=== PATIENT | female | born 1965 | race Hispanic/Latino ===

== ENCOUNTER 2017-10-01 14:03 | Inpatient (IN) | payer MEDICARE ==
[2017-10-01 16:28] LABS: Basophils % (Auto) 0.5 % (0.0-1.8); Eosinophils % (Auto) 3.6 % (0.0-4.3); Hematocrit 32.3 % (30.3-42.9); Hemoglobin 10.1 gm/dl (10.1-14.3); Mean Corpuscular HGB Conc 31 % (30-34); Mean Corpuscular Hemoglobin 30 pg (28-32); Mean Corpuscular Volume 95 fl (79-97); Platelet Count 199 K/mm3 (140-440); Red Blood Count 3.39 M/mm3 (3.65-5.03); Red Cell Distribution Width 15.5 % (13.2-15.2); White Blood Count 8.2 K/mm3 (4.5-11.0)
[2017-10-01 16:34] LABS: Calcium 8.3 mg/dL (8.4-10.2); Chloride 98.3 mmol/L (98-107)
[2017-10-01 16:55] LABS: Potassium 4.5 mmol/L (3.6-5.0)
--- NOTE | 2017-10-01 18:12 | Emergency Department Report ---
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 Patient states she developed right sided lateral chest wall pain described like someone is punching her since 3 AM. Pain is intermittent and worse with coughing and palpation. No specific alleviating factors reported. Pain Currently rated 3/10 in intensity. Patient received 1.5-2 hours of her scheduled 5 hour dialysis. Dialysis was interrupted due to drop in her blood pressure. Patient states she had a recent chest x-ray at the [facility] which showed bilateral pneumonia and she has been on antibiotics 1 week. Per MAR patient has been on Levaquin 750mg 7 days since September 27 and repeat chest x-ray was done today mine captain however, results not included with transfer paperwork. Patient continues to have cough productive of thick white greenish sputum and she reports a fever at the [facility]. Denies shortness of breath, nausea, vomiting, or diaphoresis. Patient also feels like her right leg is most swollen than usual but not painful. She has chronic left-sided paralysis secondary to previous CVA with chronic edema to the left arm and left leg. Patient did receive 2 nitroglycerin and 324 aspirin provided by the dialysis center prior to arrival. Dialysis center [facility], she does not know the name of the television operator Severity scale (0 -10): 1 - Related Data Allergies Allergy/AdvReac Type Severity Reaction Status Date / Time amoxicillin Allergy Unknown Verified 10/01/17 14:51 codeine Allergy Unknown Verified 10/01/17 14:51 potassium chloride Allergy Unknown Verified 10/01/17 14:51 prochlorperazine Allergy Unknown Verified 10/01/17 14:51 [From Compazine] Heart Score - HEART Score History: Slightly suspicious EKG: Normal Age: 45-65 Risk factors: > 3 risk factors or hx of atherosclerotic disease Troponin: 1-3x normal limit HEART Score: 4 ED Review of Systems ROS: Stated complaint: CHEST PAIN Other details as noted in HPI Comment: All other systems reviewed and negative Other: Constitutional: As per HPI Eyes: No eye pain visual changes or discharge ENT: No ear pain or throat pain Neck: Denies pain Respiratory: As per HPI Cardiovascular: As per HPI GI: Denies abdominal pain, nausea, vomiting, diarrhea : Patient states she still has urine output Musculoskeletal: As per HPI Skin: Denies rash, lesions, erythema Neurologic: Denies headache, numbness, weakness Psychiatric: Denies suicidal ideation, hallucinations ED Past Medical Hx - Past Medical History Previous Medical History?: Yes Hx Hypertension: Yes Hx CVA: Yes (residual left-sided weakness) Hx Heart Attack/AMI: Yes Hx Congestive Heart Failure: Yes Hx Diabetes: Yes Hx Renal Disease: Yes Hx COPD: Yes (on 3 L o2) Additional medical history: morbid obesity. sleep apnea - Surgical History Past Surgical History?: Yes - Social History Smoking Status: Former Smoker Substance Use Type: None ED Physical Exam - General Limitations: Physical Limitation - Other Other exam information: General: No limitations, patient is alert in no acute distress Head exam: Atraumatic, normocephalic Eyes exam: Normal appearance ENT: Moist mucous membrane, normal oropharynx Neck exam: Normal inspection, full range of motion, no meningismus nontender Respiratory exam: No tachypnea or accessory muscle use, diminished by base of the breath sounds Cardiovascular: Normal rate and rhythm. Reproducible right anterior lateral lower chest wall tenderness to palpation Abdomen: Soft, nondistended, and nontender, with normal bowel sounds, no rebound, or guarding Extremity: Full range of motion normal inspection no deformity Back: Normal Inspection, full range of motion, no tenderness Neurologic: Alert, oriented x3, cranial nerves intact, left arm and leg paralysis secondary to previous CVA with lymphedema. Mild right lower extremity edema, no calf tenderness process 5 upper right and lower right extremity strength Psychiatric: normal affect, normal mood Skin: Warm, dry, intact ED Course Vital Signs 10/01/17 10/01/17 10/01/17 15:26 15:28 15:30 Pulse Rate 77 78 78 Respiratory 10 L 20 14 Rate Blood Pressure Blood Pressure 93/60 [Right] O2 Sat by Pulse 94 95 96 Oximetry 10/01/17 10/01/17 10/01/17 15:46 16:00 16:27 Pulse Rate 78 Respiratory 11 L Rate Blood Pressure Blood Pressure [Right] O2 Sat by Pulse 96 99 96 Oximetry 10/01/17 10/01/17 10/01/17 16:30 16:45 17:01 Pulse Rate 76 72 Respiratory 13 12 Rate Blood Pressure 101/78 94/62 93/57 Blood Pressure [Right] O2 Sat by Pulse 98 97 98 Oximetry 10/01/17 10/01/17 17:15 17:30 Pulse Rate 76 74 Respiratory 13 12 Rate Blood Pressure 93/57 101/64 Blood Pressure [Right] O2 Sat by Pulse 93 Oximetry - Reevaluation(s) Reevaluation #1: 10/01/17 19:53 Was awaiting V/Q results however, I was informed at this time the patient's weight exceeded the limit for VQ scan. Patient making her a different Lasix 80 mg IV ordered - Consultations Consultation #1: 10/01/17 20:03 DR Burk television operator prior authorization nurse consulted to manage Dialysis NOMAN score - Noman Score Age > 65: (0) No Aspirin use within the Past 7 Days: (1) Yes 3 or more CAD Risk Factors: (1) Yes 2 or more Angina events in past 24 hrs: (0) No Known CAD with more than 50% Stenosis: (1) Yes Elevated Cardiac Markers: (1) Yes ST Deviation Greater than 0.5mm: (0) No NOMAN Score: 4 ED Medical Decision Making - Lab Data Result diagrams: 10/01/17 15:56 10/01/17 15:56 Lab Results 10/01/17 10/01/17 10/01/17 Range/Units 15:56 15:56 15:56 WBC 8.2 (4.5-11.0) K/mm3 RBC 3.39 L (3.65-5.03) M/mm3 Hgb 10.1 (10.1-14.3) gm/dl Hct 32.3 (30.3-42.9) % MCV 95 (79-97) fl MCH 30 (28-32) pg MCHC 31 (30-34) % RDW 15.5 H (13.2-15.2) % Plt Count 199 (140-440) K/mm3 Lymph % (Auto) 23.9 (13.4-35.0) % [place] % (Auto) 9.7 H (0.0-7.3) % Eos % (Auto) 3.6 (0.0-4.3) % Baso % (Auto) 0.5 (0.0-1.8) % Lymph # 2.0 (1.2-5.4) K/mm3 [place] # 0.8 (0.0-0.8) K/mm3 Eos # 0.3 (0.0-0.4) K/mm3 Baso # 0.0 (0.0-0.1) K/mm3 Seg Neutrophils % 62.3 (40.0-70.0) % Seg Neutrophils # 5.1 (1.8-7.7) K/mm3 D-Dimer (0-234) ng/mlDDU Sodium 143 (137-145) mmol/L Potassium 4.5 (3.6-5.0) mmol/L Chloride 98.3 (98-107) mmol/L Carbon Dioxide 29 (22-30) mmol/L Anion Gap 20 mmol/L BUN 17 (7-17) mg/dL Creatinine 6.1 H (0.7-1.2) mg/dL Estimated GFR 7 ml/min BUN/Creatinine Ratio 3 % Glucose 114 H (65-100) mg/dL Calcium 8.3 L (8.4-10.2) mg/dL Troponin T 0.278 H* (0.00-0.029) ng/mL NT-Pro-B Natriuret Pep 5815 H (0-900) pg/mL Triglycerides 190 H (2-149) mg/dL Cholesterol 173 (50-199) mg/dL LDL Cholesterol Direct 101 (50-130) mg/dL HDL Cholesterol 34 L (40-59) mg/dL Cholesterol/HDL Ratio 5.08 % 10/01/17 Range/Units 17:29 WBC (4.5-11.0) K/mm3 RBC (3.65-5.03) M/mm3 Hgb (10.1-14.3) gm/dl Hct (30.3-42.9) % MCV (79-97) fl MCH (28-32) pg MCHC (30-34) % RDW (13.2-15.2) % Plt Count (140-440) K/mm3 Lymph % (Auto) (13.4-35.0) % [place] % (Auto) (0.0-7.3) % Eos % (Auto) (0.0-4.3) % Baso % (Auto) (0.0-1.8) % Lymph # (1.2-5.4) K/mm3 [place] # (0.0-0.8) K/mm3 Eos # (0.0-0.4) K/mm3 Baso # (0.0-0.1) K/mm3 Seg Neutrophils % (40.0-70.0) % Seg Neutrophils # (1.8-7.7) K/mm3 D-Dimer 494.09 H (0-234) ng/mlDDU Sodium (137-145) mmol/L Potassium (3.6-5.0) mmol/L Chloride (98-107) mmol/L Carbon Dioxide (22-30) mmol/L Anion Gap mmol/L BUN (7-17) mg/dL Creatinine (0.7-1.2) mg/dL Estimated GFR ml/min BUN/Creatinine Ratio % Glucose (65-100) mg/dL Calcium (8.4-10.2) mg/dL Troponin T (0.00-0.029) ng/mL NT-Pro-B Natriuret Pep (0-900) pg/mL Triglycerides (2-149) mg/dL Cholesterol (50-199) mg/dL LDL Cholesterol Direct (50-130) mg/dL HDL Cholesterol (40-59) mg/dL Cholesterol/HDL Ratio % - EKG Data -: EKG Interpreted by Me (anteroseptal infarct) EKG shows normal: sinus rhythm, axis (-14), QRS complexes (90), ST-T waves (lat t inv avl) Rate: normal (79) - EKG Data When compared to previous EKG there are: previous EKG unavailable - Radiology Data Radiology results: report reviewed Chest x-ray: CHF is suspected with likely mild pulmonary edema and pleural effusions. Atelectasis or pneumonia suspected in the left but the cardiac region - Medical Decision Making Plans admit patient to hospital for right-sided chest pain likely muscle skeletal. Positive pulmonary edema plus or minus pulmonary infiltrate. Blood cultures ordered. Levaquin initiated. D-dimer elevated but patient exceeds the weight limit for PTT were unable to obtain a 20-gauge for CT angiogram. Picture Frames Inspector has been called to start to manage dialysis tomorrow. Lasix ordered to encourage urine output given pulmonary edema on x-ray however, patient appears very comfortable. She would need BiPAP at night. - Differential Diagnosis CHF, PE, pneumonia, bronchitis Critical Care Time: No Critical care attestation.: If time is entered above; I have spent that time in minutes in the direct care of this critically ill patient, excluding procedure time. ED Disposition Clinical Impression: Pulmonary edema, Pneumonia, Morbid obesity, Chest wall pain, Elevated d-dimer, ESRD needing dialysis, Elevated troponin Disposition: OP ADMIT IP TO THIS HOSP Is pt being admited?: Yes Condition: Stable Time of Disposition: 20:02 (Dr Parkinson/hosp)
--- NOTE | 2017-10-01 18:31 | XRay Report ---
FINAL REPORT PROCEDURE: XR CHEST 1V AP TECHNIQUE: Chest radiograph anteroposterior view. CPT 73499 HISTORY: cough, cp, sob COMPARISON: No prior studies are available for comparison. FINDINGS: Changes of CHF are present. Dual-lumen catheter terminates in the region of the distal SVC and right atrium of the heart. Small pleural effusions are suspected. Mild pulmonary edema is not excluded. In the left retrocardiac region there is questionable atelectasis or pneumonia. IMPRESSION: CHF is suspected with likely mild pulmonary edema and pleural effusion. Atelectasis or pneumonia is suspected in the left retrocardiac region.
[2017-10-01] MEDS ORDERED: LASIX IV ONE ×2 (19:55→22:00)
[2017-10-01] MEDS ORDERED: LEVAQUIN 750MG/150ML 750 MG/150 ML BAG IV ONE (19:56)
--- NOTE | 2017-10-01 20:53 | History and Physical Report ---
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 Pt states that she has experienced pain in her chest for the past 1 day with worsening symptoms over the past 5 hours. Pt states that the pain is 3- 6/10, crushing in nature, localized to the right lateral chest, nonradiating, intermittent, worse with coughing and deep breathing, as well as palpation, not worsened with exertion, or relieved with rest. Pt also complains of Right leg/ calf swelling over the past week. Pt states that she had undergone dialysis for approximately 1.5 hours and experienced a drop in her blood pressure which caused her to have concern. Pt also acknowledges concomitant productive cough [facility] Patient has been treated with oral Levaquin 750mg daily x 7 days for suspected pneumonia. Pt denies fever, chills , Palpitations, NVD, Syncope, BRBPR, Recent ill contacts. Pt seen and evaluated in ED and found to have symptoms consistent with ACS as well as possible PE. Pt initiated on empiric therapeutic anticoagulation, and cardiology team consulted. Past History Past Medical History: COPD, diabetes, ESRD, pulmonary embolism, stroke, other ( [place],) Social history: single Family history: diabetes, hypertension Medications and Allergies Allergies Allergy/AdvReac Type Severity Reaction Status Date / Time amoxicillin Allergy Unknown Verified 10/01/17 14:51 codeine Allergy Unknown Verified 10/01/17 14:51 potassium chloride Allergy Unknown Verified 10/01/17 14:51 prochlorperazine Allergy Unknown Verified 10/01/17 14:51 [From Compazine] Home Medications Medication Instructions Recorded Confirmed Last Taken Type ALBUTEROL NEB's [Proventil] 2.5 mg IH Q12H 10/01/17 10/01/17 Unknown History Aspirin [Adult Low Dose Aspirin EC] 81 mg PO QDAY 10/01/17 10/01/17 Unknown History Calcium Acetate [Phoslo] 2 cap PO TIDWM 10/01/17 10/01/17 Unknown History Carvedilol [Coreg] 6.25 mg PO BID 10/01/17 10/01/17 Unknown History Fluticasone/Salmeterol [Advair 1 puff IH BID 10/01/17 10/01/17 Unknown History 250-50 Diskus] Insulin Aspart [NovoLOG Flexpen] See Protocol SQ AC 10/01/17 10/01/17 Unknown History Losartan [Cozaar] 100 mg PO QDAY 10/01/17 10/01/17 Unknown History Magnesium Hydroxide [Milk of 30 ml PO HS 10/01/17 10/01/17 Unknown History Magnesia] Nystatin Oint [Mycostatin Oint] 1 applicatio TP BID 10/01/17 10/01/17 Unknown History Oxycodone HCl/Acetaminophen 1 each PO Q8HR PRN 10/01/17 10/01/17 Unknown History [Percocet 7.5/325 mg] Polyethylene Glycol 3350 [Miralax 17 gm PO QDAY PRN 10/01/17 10/01/17 Unknown History 3350] Ranitidine HCl [Zantac 300 MG TAB] 300 mg PO BID 10/01/17 10/01/17 Unknown History Torsemide [Demadex] 20 mg PO QDAY 10/01/17 10/01/17 Unknown History Active Meds: Active Medications Levofloxacin/Dextrose (Levaquin 750mg/150ml) 750 mg in 150 mls @ 100 mls/hr IV ONCE ONE Stop: 10/01/17 21:25 Review of Systems Constitutional: no weight loss, no weight gain, no fever, no chills Ears, nose, mouth and throat: no ear pain, no ear discharge, no tinnitis, no decreased hearing, no nose pain, no nasal congestion, no nasal discharge Breasts: no change in shape, no swelling, no mass Cardiovascular: chest pain Respiratory: cough, cough with sputum, no excessive sputum, no hemoptysis Gastrointestinal: no abdominal pain, no nausea, no vomiting, no diarrhea, no constipation Genitourinary Female: no pelvic pain, no flank pain, no menorrhagia, no dysuria , no urinary frequency Rectal: no pain, no incontinence, no bleeding Musculoskeletal: no neck stiffness, no neck pain, no shooting arm pain, no arm numbness/tingling, no low back pain Integumentary: no rash, no pruritis, no redness, no sores, no wounds, no jaundice Neurological: no transient paralysis, no paralysis, no weakness, no parathesias , no numbness, no tingling, no seizures Psychiatric: no anxiety, no memory loss, no change in sleep habits, no sleep disturbances, no insomnia, no hypersomnia Endocrine: no cold intolerance, no heat intolerance, no polyphagia, no excessive thirst, no polydipsia Hematologic/Lymphatic: no easy bruising, no easy bleeding Allergic/Immunologic: no urticaria, no allergic rhinitis, no wheezing Exam - Constitutional Vitals: Temp Pulse Resp BP Pulse Ox 98.7 F 76 12 107/63 96 10/01/17 20:05 10/01/17 20:15 10/01/17 20:31 10/01/17 20:31 10/01/17 20:31 General appearance: Present: mild distress - EENT Eyes: Present: PERRL ENT: hearing intact, clear oral mucosa - Neck Neck: Present: supple, normal ROM - Respiratory Respiratory effort: normal Respiratory: bilateral: CTA - Cardiovascular Heart Sounds: Present: S1 & S2. Absent: rub, click - Extremities Extremities: pulses symmetrical, No edema Peripheral Pulses: within normal limits - Abdominal General gastrointestinal: Present: soft, non-tender, non-distended, normal bowel sounds Female genitourinary: Present: normal - Integumentary Integumentary: Present: clear, warm, dry - Musculoskeletal Musculoskeletal: strength equal bilaterally - Psychiatric Psychiatric: appropriate mood/affect, intact judgment & insight - Neurologic Neurologic: CNII-XII intact, moves all extremities Results - Labs CBC & Chem 7: 10/01/17 21:03 10/01/17 15:56 Labs: Abnormal lab results 10/01/17 10/01/17 10/01/17 Range/Units 15:56 15:56 15:56 RBC 3.39 L (3.65-5.03) M/mm3 RDW 15.5 H (13.2-15.2) % [place] % (Auto) 9.7 H (0.0-7.3) % D-Dimer (0-234) ng/mlDDU Creatinine 6.1 H (0.7-1.2) mg/dL Glucose 114 H (65-100) mg/dL Calcium 8.3 L (8.4-10.2) mg/dL Troponin T 0.278 H* (0.00-0.029) ng/mL NT-Pro-B Natriuret Pep 5815 H (0-900) pg/mL Triglycerides 190 H (2-149) mg/dL HDL Cholesterol 34 L (40-59) mg/dL 10/01/17 10/01/17 Range/Units 17:29 19:42 RBC (3.65-5.03) M/mm3 RDW (13.2-15.2) % [place] % (Auto) (0.0-7.3) % D-Dimer 494.09 H (0-234) ng/mlDDU Creatinine (0.7-1.2) mg/dL Glucose (65-100) mg/dL Calcium (8.4-10.2) mg/dL Troponin T 0.271 H* (0.00-0.029) ng/mL NT-Pro-B Natriuret Pep (0-900) pg/mL Triglycerides (2-149) mg/dL HDL Cholesterol (40-59) mg/dL Assessment and Plan - Patient Problems (1) ACS (acute coronary syndrome) Current Visit: Yes Status: Acute Plan to address problem: Chest Pain protocol: Cardiology consulted, serial cardiac enzymes, ekg, telemetry, Echo, Stress test. Cardiology consulted, Heparin drip, (2) CHF (congestive heart failure) Current Visit: Yes Status: Acute Plan to address problem: Afterload reduction, diuresis, monitor uop q shift, daily weight, Echo (3) ESRD (end stage renal disease) Current Visit: Yes Status: Acute Plan to address problem: Nephrology consulted, in ED. (4) Acute and chronic respiratory failure Current Visit: Yes Status: Acute Plan to address problem: Supplemental oxygen, nebs, aspiration precautions, supportive care, NIPPV as clinically indicated, BLE Duplex to evaluate for DVT (5) Diabetes Current Visit: Yes Status: Acute Plan to address problem: ADA diet, insulin, accu check (6) DVT prophylaxis Current Visit: Yes Status: Acute
[2017-10-01] MEDS ORDERED: PROVENTIL IH PRN (20:54)
[2017-10-01] MEDS ORDERED: DULCOLAX PR PRN (20:54)
[2017-10-01] MEDS ORDERED: SODIUM CHLORIDE FLUSH SYRINGE 10 ML IV PRN (20:54)
[2017-10-01] MEDS ORDERED: NITROSTAT SL PRN (20:54)
[2017-10-01] MEDS ORDERED: ZOFRAN IV PRN (20:54)
[2017-10-01] MEDS ORDERED: NON-FORMULARY (Oxycodone Hcl/Acetaminophen [Percocet 7.5/325 Mg] 1 EACH) PO PRN (20:57)
[2017-10-01] MEDS ORDERED: MIRALAX 3350 PO PRN (20:57)
[2017-10-01] MEDS ORDERED: BABY ASPIRIN PO STA (21:02)
[2017-10-01] MEDS ORDERED: NACL 0.9% 100 ML IV PRN (21:15)
[2017-10-01 21:23] LABS: Hematocrit 31.3 % (30.3-42.9); Hemoglobin 10.1 gm/dl (10.1-14.3)
[2017-10-01 21:42] LABS: INR 1.2 (0.87-1.13)
[2017-10-01 21:54] LABS: Partial Thromboplastin Time 102.6 Sec. (24.2-36.6)
[2017-10-01] MEDS ORDERED: SALMETEROL IH SCH (22:00)
[2017-10-01] MEDS ORDERED: FLUTICASONE IH SCH (22:00)
[2017-10-01] MEDS ORDERED: HEPARIN/ 0.45% NACL-25,000 UNIT/500 ML 25,000 UNIT/500 ML BAG IV SCH (22:00)
[2017-10-01] MEDS ORDERED: NON-FORMULARY (Ranitidine Hcl [Zantac 300 Mg Tab] 300 MG) PO SCH (22:00)
[2017-10-01] MEDS ORDERED: MILK OF MAGNESIA PO SCH (22:00)
[2017-10-01] MEDS: COREG PO SCH (22:07)
[2017-10-01] MEDS: MYCOSTATIN TP SCH (22:21)
[2017-10-01] MEDS ORDERED: PERCOCET 5/325 PO PRN (22:30)
[2017-10-01] MEDS: PEPCID PO SCH (22:34)
[2017-10-02] MEDS: PROVENTIL IH SCH ×3 (00:48→20:49)
[2017-10-02] MEDS: PHOSLO PO SCH ×3 (08:00→17:33)
[2017-10-02] MEDS: BROVANA NEBU IH SCH (08:45)
[2017-10-02] MEDS: PULMICORT IH SCH ×2 (08:45→23:22)
[2017-10-02] MEDS: PEPCID PO SCH ×2 (10:00→22:55)
[2017-10-02] MEDS ORDERED: NON-FORMULARY (Losartan [Cozaar] 100 MG) PO SCH (10:00)
[2017-10-02] MEDS ORDERED: NON-FORMULARY (Torsemide [Demadex] 20 MG) PO SCH (10:00)
[2017-10-02] MEDS ORDERED: NACL 0.9% 100 ML IV PRN (10:37)
--- NOTE | 2017-10-02 11:52 | Consultation ---
History of Present Illness - Reason for Consult Consult date: 10/02/17 end stage renal disease - History of Present Illness Ms Alvarenga is a 52 y/o lady with a PMH of ESRD on HD TTS via [facility], CHF, DM2 , COPD, PE, CAD, Morbid obesity who has been admitted to the [facility] with worsening chest pain. Pt has also had some cough and SHOB. She denies fever, N/V , belly pain, diarrhea. Pt has been on levaquin recently for suspected PNA. Pt had HD yesterday for around 1.5 hours which was stopped owing to low BP. Pt had a CXR done in the ER which showed congestion. Pt's toponin levels have also been slightly elevated and there has been concern for PE. ROS: As in HPI otherwise 12 point review of systems -ve Past History Past Medical History: COPD, diabetes, ESRD, pulmonary embolism, stroke, other ( [place],) Social history: single Family history: diabetes, hypertension Past History Past Medical History: COPD, diabetes, ESRD, pulmonary embolism, stroke, other ( [place],) Social history: single Family history: diabetes, hypertension Medications and Allergies Allergies Allergy/AdvReac Type Severity Reaction Status Date / Time amoxicillin Allergy Unknown Verified 10/01/17 14:51 codeine Allergy Unknown Verified 10/01/17 14:51 potassium chloride Allergy Unknown Verified 10/01/17 14:51 prochlorperazine Allergy Unknown Verified 10/01/17 14:51 [From Compazine] Home Medications Medication Instructions Recorded Confirmed Last Taken Type ALBUTEROL NEB's [Proventil] 2.5 mg IH Q12H 10/01/17 10/01/17 Unknown History Aspirin [Adult Low Dose Aspirin EC] 81 mg PO QDAY 10/01/17 10/01/17 Unknown History Calcium Acetate [Phoslo] 2 cap PO TIDWM 10/01/17 10/01/17 Unknown History Carvedilol [Coreg] 6.25 mg PO BID 10/01/17 10/01/17 Unknown History Fluticasone/Salmeterol [Advair 1 puff IH BID 10/01/17 10/01/17 Unknown History 250-50 Diskus] Insulin Aspart [NovoLOG Flexpen] See Protocol SQ AC 10/01/17 10/01/17 Unknown History Losartan [Cozaar] 100 mg PO QDAY 10/01/17 10/01/17 Unknown History Magnesium Hydroxide [Milk of 30 ml PO HS 10/01/17 10/01/17 Unknown History Magnesia] Nystatin Oint [Mycostatin Oint] 1 applicatio TP BID 10/01/17 10/01/17 Unknown History Oxycodone HCl/Acetaminophen 1 each PO Q8HR PRN 10/01/17 10/01/17 Unknown History [Percocet 7.5/325 mg] Polyethylene Glycol 3350 [Miralax 17 gm PO QDAY PRN 10/01/17 10/01/17 Unknown History 3350] Ranitidine HCl [Zantac 300 MG TAB] 300 mg PO BID 10/01/17 10/01/17 Unknown History Torsemide [Demadex] 20 mg PO QDAY 10/01/17 10/01/17 Unknown History Active Meds: Active Medications Acetaminophen (Tylenol) 650 mg PO Q4H PRN PRN Reason: Pain MILD(1-3)/Fever >100.5/REID Albuterol (Proventil) 2.5 mg IH Q4HRT PRN PRN Reason: Shortness Of Breath Albuterol (Proventil) 2.5 mg IH Q12HRT [facility] Last Admin: 10/02/17 08:46 Dose: 2.5 mg Arformoterol Tartrate (Brovana Nebu) 15 mcg IH Q12HRT [facility] Last Admin: 10/02/17 08:45 Dose: 15 mcg Aspirin (Halfprin Ec) 81 mg PO QDAY [facility] Bisacodyl (Dulcolax) 10 mg GA QDAY PRN PRN Reason: Constipation unrelieved by MOM Budesonide (Pulmicort) 0.5 mg IH Q12HRT [facility] Last Admin: 10/02/17 08:45 Dose: 0.5 mg Calcium Acetate (Phoslo) 1,334 mg PO TIDWM [facility] Carvedilol (Coreg) 6.25 mg PO BID [facility] Last Admin: 10/01/17 22:07 Dose: Not Given Famotidine (Pepcid) 10 mg PO BID [facility] Last Admin: 10/01/17 22:34 Dose: 10 mg Heparin Sodium (Porcine) (Heparin) 5,000 unit IV JOSÉ MIGUEL PRN PRN Reason: hemodialysis Heparin Sodium/Sodium Chloride (Heparin/ 0.45% Nacl-25,000 Unit/500 Ml) 25,000 unit in 500 mls @ 30 mls/hr IV TITR ANISH; 1,500 UNITS/HR PRN Reason: Protocol Sodium Chloride (Nacl 0.9%) 100 mls @ 999 mls/hr IV JOSÉ MIGUEL PRN PRN Reason: Hypotension Sodium Chloride (Nacl 0.9%) 100 mls @ 999 mls/hr IV JOSÉ MIGUEL PRN PRN Reason: Hypotension Losartan Potassium (Cozaar) 100 mg PO QDAY [facility] Magnesium Hydroxide (Milk Of Magnesia) 30 ml PO Q4H PRN PRN Reason: Constipation Nitroglycerin (Nitrostat) 0.4 mg SL Q5M PRN PRN Reason: Chest Pain Nystatin (Mycostatin) 1 applic TP BID [facility] Last Admin: 10/01/17 22:21 Dose: 1 applic Ondansetron HCl (Zofran) 4 mg IV Q8H PRN PRN Reason: N/V unrelieved by Reglan Oxycodone/Acetaminophen (Percocet 5/325) 1.5 tab PO Q8H PRN PRN Reason: Pain Polyethylene Glycol (Miralax 3350) 17 gm PO QDAY PRN PRN Reason: Constipation Sodium Chloride (Sodium Chloride Flush Syringe 10 Ml) 10 ml IV PRN PRN PRN Reason: LINE FLUSH Torsemide (Demadex) 20 mg PO QDAY [facility] Exam - Vital Signs Vital signs: Vital Signs Pulse Resp Pulse Ox 77 10 L 94 10/01/17 15:26 10/01/17 15:26 10/01/17 15:26 - Physical Exam Narrative exam: GE: AAOX3, Obese lady HEENT: PERRLA Neck: Supple Chest: BL Crackles, Rt Cw tdc CVS: RRR Abd: Soft/Obese, BS+ Ext: 1-2+ BLE edema, LUE AVF Psyche: Appropriate mood Results - Lab Results 10/01/17 21:03 10/02/17 12:03 Most recent lab results Calcium 8.3 mg/dL (8.4-10.2) L 10/01/17 15:56 Assessment and Plan ESRD on hemodialysis: Volume overload: -CXR congested. Plan for extra HD today. HD tomorrow as well, will eval for HD need daily -Renally dose all meds -Check BMP/Mg/Phos daily Suspected PE: -VQ Scan could not be done due to morbid obesity -On anticoagulation per primary -Consider DVT US of legs Acute coronary syndrome: Chest Pain: -Cards consulted, per them -Has h/o CHF per notes Diabetes mellitus type 2 on insulin: -On ISS -Per primary Anemia of chronic disease due to ESRD: -Epogen to keep Hg 10-12 Bone Metabolic disease: -Continue phos binder Morbid obesity: Obstructive Sleep apnea: -Counselled to loose wt -CPAP per primary Plan d/w HD RN. Jorge Burk MD Nephrology, Hypertension, Dialysis, Transplantation Phone no: [phone]
--- NOTE | 2017-10-02 12:09 | Consultation ---
History of Present Illness Consult date: 10/02/17 Consult reason: chest pain History of present illness: This is a 52yr old woman shelter resident whom is bed bound with multiple medical problems was sent from dialysis with complaints of right sided chest pain. No reported aggravating or relieving factors. A chest x-ray suggestive of CHF with atelectasis versus pneumonia. WBC is normal. Patient remains afebrile. Her ECG is a sinus rhythm, no acute ischemic changes. Patient was admitted for rule out acute coronary syndrome with a persantine thallium stress test but later canceled due to the patient weight exceeds the table limit. Cardiology consultation was requested. Past History Past Medical History: COPD, diabetes, ESRD, pulmonary embolism, stroke, other ( [place],) Social history: single Family history: diabetes, hypertension Medications and Allergies Allergies Allergy/AdvReac Type Severity Reaction Status Date / Time amoxicillin Allergy Unknown Verified 10/01/17 14:51 codeine Allergy Unknown Verified 10/01/17 14:51 potassium chloride Allergy Unknown Verified 10/01/17 14:51 prochlorperazine Allergy Unknown Verified 10/01/17 14:51 [From Compazine] Home Medications Medication Instructions Recorded Confirmed Last Taken Type ALBUTEROL NEB's [Proventil] 2.5 mg IH Q12H 10/01/17 10/01/17 Unknown History Aspirin [Adult Low Dose Aspirin EC] 81 mg PO QDAY 10/01/17 10/01/17 Unknown History Calcium Acetate [Phoslo] 2 cap PO TIDWM 10/01/17 10/01/17 Unknown History Carvedilol [Coreg] 6.25 mg PO BID 10/01/17 10/01/17 Unknown History Fluticasone/Salmeterol [Advair 1 puff IH BID 10/01/17 10/01/17 Unknown History 250-50 Diskus] Insulin Aspart [NovoLOG Flexpen] See Protocol SQ AC 10/01/17 10/01/17 Unknown History Losartan [Cozaar] 100 mg PO QDAY 10/01/17 10/01/17 Unknown History Magnesium Hydroxide [Milk of 30 ml PO HS 10/01/17 10/01/17 Unknown History Magnesia] Nystatin Oint [Mycostatin Oint] 1 applicatio TP BID 10/01/17 10/01/17 Unknown History Oxycodone HCl/Acetaminophen 1 each PO Q8HR PRN 10/01/17 10/01/17 Unknown History [Percocet 7.5/325 mg] Polyethylene Glycol 3350 [Miralax 17 gm PO QDAY PRN 10/01/17 10/01/17 Unknown History 3350] Ranitidine HCl [Zantac 300 MG TAB] 300 mg PO BID 10/01/17 10/01/17 Unknown History Torsemide [Demadex] 20 mg PO QDAY 10/01/17 10/01/17 Unknown History Active Meds: Active Medications Acetaminophen (Tylenol) 650 mg PO Q4H PRN PRN Reason: Pain MILD(1-3)/Fever >100.5/REID Albuterol (Proventil) 2.5 mg IH Q4HRT PRN PRN Reason: Shortness Of Breath Albuterol (Proventil) 2.5 mg IH Q12HRT [facility] Last Admin: 10/02/17 08:46 Dose: 2.5 mg Arformoterol Tartrate (Brovana Nebu) 15 mcg IH Q12HRT [facility] Last Admin: 10/02/17 08:45 Dose: 15 mcg Aspirin (Halfprin Ec) 81 mg PO QDAY [facility] Bisacodyl (Dulcolax) 10 mg SC QDAY PRN PRN Reason: Constipation unrelieved by MOM Budesonide (Pulmicort) 0.5 mg IH Q12HRT [facility] Last Admin: 10/02/17 08:45 Dose: 0.5 mg Calcium Acetate (Phoslo) 1,334 mg PO TIDWM [facility] Carvedilol (Coreg) 6.25 mg PO BID [facility] Last Admin: 10/01/17 22:07 Dose: Not Given Famotidine (Pepcid) 10 mg PO BID [facility] Last Admin: 10/01/17 22:34 Dose: 10 mg Heparin Sodium (Porcine) (Heparin) 5,000 unit IV JOSÉ MIGUEL PRN PRN Reason: hemodialysis Heparin Sodium/Sodium Chloride (Heparin/ 0.45% Nacl-25,000 Unit/500 Ml) 25,000 unit in 500 mls @ 30 mls/hr IV TITR ANISH; 1,500 UNITS/HR PRN Reason: Protocol Sodium Chloride (Nacl 0.9%) 100 mls @ 999 mls/hr IV JOSÉ MIGUEL PRN PRN Reason: Hypotension Sodium Chloride (Nacl 0.9%) 100 mls @ 999 mls/hr IV JOSÉ MIGUEL PRN PRN Reason: Hypotension Losartan Potassium (Cozaar) 100 mg PO QDAY [facility] Magnesium Hydroxide (Milk Of Magnesia) 30 ml PO Q4H PRN PRN Reason: Constipation Nitroglycerin (Nitrostat) 0.4 mg SL Q5M PRN PRN Reason: Chest Pain Nystatin (Mycostatin) 1 applic TP BID [facility] Last Admin: 10/01/17 22:21 Dose: 1 applic Ondansetron HCl (Zofran) 4 mg IV Q8H PRN PRN Reason: N/V unrelieved by Reglan Oxycodone/Acetaminophen (Percocet 5/325) 1.5 tab PO Q8H PRN PRN Reason: Pain Polyethylene Glycol (Miralax 3350) 17 gm PO QDAY PRN PRN Reason: Constipation Sodium Chloride (Sodium Chloride Flush Syringe 10 Ml) 10 ml IV PRN PRN PRN Reason: LINE FLUSH Torsemide (Demadex) 20 mg PO QDAY [facility] Physical Examination Vital Signs Pulse Resp Pulse Ox 77 10 L 94 10/01/17 15:26 10/01/17 15:26 10/01/17 15:26 General appearance: no acute distress Cardiac: Positive: Reg Rate and Rhythm Results 10/01/17 21:03 10/01/17 15:56 Coagulation 10/01/17 Range/Units 17:29 PT 15.9 H (12.2-14.9) Sec. INR 1.20 H (0.87-1.13) APTT 102.6 H* (24.2-36.6) Sec. Lipids 10/01/17 Range/Units 15:56 Triglycerides 190 H (2-149) mg/dL Cholesterol 173 (50-199) mg/dL HDL Cholesterol 34 L (40-59) mg/dL Cholesterol/HDL Ratio 5.08 % CBC 10/01/17 10/01/17 Range/Units 15:56 21:03 WBC 8.2 (4.5-11.0) K/mm3 RBC 3.39 L (3.65-5.03) M/mm3 Hgb 10.1 10.1 (10.1-14.3) gm/dl Hct 32.3 31.3 (30.3-42.9) % Plt Count 199 180 (140-440) K/mm3 Lymph # 2.0 (1.2-5.4) K/mm3 [place] # 0.8 (0.0-0.8) K/mm3 Eos # 0.3 (0.0-0.4) K/mm3 Baso # 0.0 (0.0-0.1) K/mm3 Comprehensive Metabolic Panel 10/01/17 Range/Units 15:56 Sodium 143 (137-145) mmol/L Potassium 4.5 (3.6-5.0) mmol/L Chloride 98.3 (98-107) mmol/L Carbon Dioxide 29 (22-30) mmol/L BUN 17 (7-17) mg/dL Creatinine 6.1 H (0.7-1.2) mg/dL Glucose 114 H (65-100) mg/dL Calcium 8.3 L (8.4-10.2) mg/dL Assessment and Plan Chest pain ESRD on dialysis Elevated troponin likely in the setting of renal disease Prior CVA Hypertension DM COPD on 3L oxygen Sleep apnea Morbid obesity
[2017-10-02] MEDS ORDERED: NACL 0.9 (PRIMING MACHINE ONLY DIALYSIS) MC ONE (12:32)
[2017-10-02 12:49] LABS: Anion Gap 16 mmol/L; Carbon Dioxide 31 mmol/L (22-30); Chloride 96.1 mmol/L (98-107); Glucose 173 mg/dL (65-100); Sodium 141 mmol/L (137-145)
[2017-10-02 12:50] LABS: BUN/Creatinine Ratio 2
[2017-10-02 12:54] LABS: Blood Urea Nitrogen < 1 mg/dL (7-17); Potassium 2.2 mmol/L (3.6-5.0)
--- NOTE | 2017-10-02 14:30 | Progress Note ---
Assessment and Plan Assessment and plan: 52 YO Female Intermediate Resident with MO,CVA with LHP, VT, PE, CHF, DM, COPD, ESRD on HD, Chronic Respiratory Failure on 3L O2, RENNY presents to ED for evaluation. Pt states that she has experienced pain in her chest for the past 1 day with worsening symptoms over the past 5 hours. Pt states that the pain is 3- 6/10, crushing in nature, localized to the right lateral chest, nonradiating, intermittent, worse with coughing and deep breathing, as well as palpation, not worsened with exertion, or relieved with rest. Pt also complains of Right leg/ calf swelling over the past week. Pt states that she had undergone dialysis for approximately 1.5 hours and experienced a drop in her blood pressure which caused her to have concern. Pt also acknowledges concomitant productive cough of whitish sputum [facility] at the prison. Patient has been treated with oral Levaquin 750mg daily x 7 days for suspected pneumonia. Pt denies fever, chills , Palpitations, NVD, Syncope, BRBPR, Recent ill contacts. Pt seen and evaluated in ED and found to have symptoms consistent with ACS as well as possible PE. Pt initiated on empiric therapeutic anticoagulation, and cardiology team consulted. Acute on chronic Respiratory failure Morbid obesity Presumed obesity hyperventilation syndrome Acute on chronic congestive heart failure ESRD Diabetes mellitus Severe hypokalemia- Probably erroronous, patient refusing redraw labs, she understands the risk associated, continue remote Tele Type 2 VT secondary to ESRD PLAN * Supportive care * Cardiology and Nephrology input noted, case discussed with Nephrology * Unable to obtain CTA OR V/Q AND STRESS TEST due to weight, Considering improvement of symptoms will check Lower ext doppler and if negative will not further purse prior studies, although patient is aware that small chance exist * BIPAP as needed * Dily weight and I/O * Echo pending * obtain record from [facility] * Accucheck AC/HS, insulin sliding scale * DVT/GI prophy * History Interval history: patient seen and examined in the DIALYSIS UNIT. reports improvement in shortness of breath and chest pain. Denies any fever, nausea, vomiting or diarrhea. states that she is in a prison following a recent hospitalization. Hospitalist Physical - Constitutional Vitals: Temp Pulse Resp BP Pulse Ox 98.6 F 79 18 119/52 96 10/02/17 13:20 12/06/17 13:20 10/02/17 13:20 10/02/17 13:20 10/02/17 08:50 General appearance: Present: no acute distress, well-nourished, obese (morbidly) - EENT Eyes: Present: PERRL, irregular pupil - Neck Neck: Present: supple, normal ROM - Respiratory Respiratory effort: normal Respiratory: bilateral: diminished - Cardiovascular Rhythm: regular Heart Sounds: Present: S1 & S2. Absent: systolic murmur, diastolic murmur - Extremities Extremities: no ischemia, pulses intact, pulses symmetrical, Full ROM Extremity abnormal: edema (+1) Peripheral Pulses: within normal limits - Abdominal General gastrointestinal: soft, non-tender, non-distended, normal bowel sounds, other (nlarged panus) - Integumentary Integumentary: Present: clear, warm, dry - Psychiatric Psychiatric: appropriate mood/affect, intact judgment & insight, cooperative - Neurologic Neurologic: CNII-XII intact Results - Labs CBC & Chem 7: 10/03/17 04:13 10/02/17 23:48 Labs: Laboratory Last Values WBC 8.2 K/mm3 (4.5-11.0) 10/01/17 15:56 RBC 3.39 M/mm3 (3.65-5.03) L 10/01/17 15:56 Hgb 10.1 gm/dl (10.1-14.3) 10/01/17 21:03 Hct 31.3 % (30.3-42.9) 10/01/17 21:03 MCV 95 fl (79-97) 10/01/17 15:56 MCH 30 pg (28-32) 10/01/17 15:56 MCHC 31 % (30-34) 10/01/17 15:56 RDW 15.5 % (13.2-15.2) H 10/01/17 15:56 Plt Count 180 K/mm3 (140-440) 10/01/17 21:03 Lymph % (Auto) 23.9 % (13.4-35.0) 10/01/17 15:56 [place] % (Auto) 9.7 % (0.0-7.3) H 10/01/17 15:56 Eos % (Auto) 3.6 % (0.0-4.3) 10/01/17 15:56 Baso % (Auto) 0.5 % (0.0-1.8) 10/01/17 15:56 Lymph # 2.0 K/mm3 (1.2-5.4) 10/01/17 15:56 [place] # 0.8 K/mm3 (0.0-0.8) 10/01/17 15:56 Eos # 0.3 K/mm3 (0.0-0.4) 10/01/17 15:56 Baso # 0.0 K/mm3 (0.0-0.1) 10/01/17 15:56 Seg Neutrophils % 62.3 % (40.0-70.0) 10/01/17 15:56 Seg Neutrophils # 5.1 K/mm3 (1.8-7.7) 10/01/17 15:56 PT 15.9 Sec. (12.2-14.9) H 10/01/17 17:29 INR 1.20 (0.87-1.13) H 10/01/17 17:29 APTT 102.6 Sec. (24.2-36.6) H* 10/01/17 17:29 D-Dimer 494.09 ng/mlDDU (0-234) H 10/01/17 17:29 Sodium 141 mmol/L (137-145) 10/02/17 12:03 Potassium 2.2 mmol/L (3.6-5.0) L* D 10/02/17 12:03 Chloride 96.1 mmol/L (98-107) L 10/02/17 12:03 Carbon Dioxide 31 mmol/L (22-30) H 10/02/17 12:03 Anion Gap 16 mmol/L 10/02/17 12:03 BUN < 1 mg/dL (7-17) L 10/02/17 12:03 Creatinine 0.6 mg/dL (0.7-1.2) L D 10/02/17 12:03 Estimated GFR > 60 ml/min 10/02/17 12:03 BUN/Creatinine Ratio 2 % 10/02/17 12:03 Glucose 173 mg/dL (65-100) H 10/02/17 12:03 Calcium 7.0 mg/dL (8.4-10.2) L D 10/02/17 12:03 Troponin T 0.320 ng/mL (0.00-0.029) H* 10/02/17 12:03 NT-Pro-B Natriuret Pep 5815 pg/mL (0-900) H 10/01/17 15:56 Triglycerides 190 mg/dL (2-149) H 10/01/17 15:56 Cholesterol 173 mg/dL (50-199) 10/01/17 15:56 LDL Cholesterol Direct 101 mg/dL (50-130) 10/01/17 15:56 HDL Cholesterol 34 mg/dL (40-59) L 10/01/17 15:56 Cholesterol/HDL Ratio 5.08 % 10/01/17 15:56 Hepatitis A IgM Ab Non-reactive (NonReactive) 10/02/17 12:03 Hep Bs Antigen Non-reactive (Negative) 10/02/17 12:03 Hep B Core IgM Ab Non-reactive (NonReactive) 10/02/17 12:03 Hepatitis C Antibody Non-reactive (NonReactive) 10/02/17 12:03 - Imaging and Cardiology Chest x-ray: image reviewed (fluid overload)
[2017-10-02] MEDS: HEPARIN IV PRN (15:04)
[2017-10-02] MEDS: COREG PO SCH ×2 (16:53→22:56)
[2017-10-02] MEDS: COZAAR PO SCH (17:32)
[2017-10-02] MEDS: DEMADEX PO SCH (17:32)
[2017-10-02] MEDS: HALFPRIN EC PO SCH (17:33)
[2017-10-02] MEDS: MILK OF MAGNESIA PO PRN (17:35)
[2017-10-02] MEDS: HEPARIN SUB-Q SCH (22:55)
[2017-10-03 00:37] LABS: Calcium 8.2 mg/dL (8.4-10.2); Chloride 98.6 mmol/L (98-107); Potassium 4.1 mmol/L (3.6-5.0)
[2017-10-03] MEDS: BROVANA NEBU IH SCH ×3 (02:03→19:55)
[2017-10-03 04:40] LABS: Hematocrit 30.9 % (30.3-42.9)
[2017-10-03] MEDS: PROVENTIL IH SCH ×2 (08:41→19:55)
[2017-10-03] MEDS: PULMICORT IH SCH ×2 (08:41→19:55)
[2017-10-03] MEDS: COZAAR PO SCH (09:41)
[2017-10-03] MEDS: COREG PO SCH ×2 (09:41→22:00)
[2017-10-03] MEDS: PEPCID PO SCH ×2 (09:41→21:44)
[2017-10-03] MEDS: DEMADEX PO SCH (09:41)
[2017-10-03] MEDS: PHOSLO PO SCH ×3 (09:41→17:30)
[2017-10-03] MEDS: HALFPRIN EC PO SCH (09:41)
[2017-10-03] MEDS: HEPARIN SUB-Q SCH ×2 (09:42→23:04)
[2017-10-03] MEDS: MILK OF MAGNESIA PO PRN (10:42)
--- NOTE | 2017-10-03 10:53 | Progress Note ---
Assessment and Plan ESRD on hemodialysis: Volume overload: -CXR was congested. s/p HD yesterday, HD today. Will eval for HD need daily. -Check CXR in am for volume status. -Renally dose all meds -Check BMP/Mg/Phos daily Suspected PE: -VQ Scan/CTPE could not be done due to morbid obesity -Per primary. Acute coronary syndrome: Chest Pain: -Cards consulted, per them -Has h/o CHF per notes Diabetes mellitus type 2 on insulin: -On ISS -Per primary Anemia of chronic disease due to ESRD: -Epogen to keep Hg 10-12 Bone Metabolic disease: -Continue phos binder Morbid obesity: Obstructive Sleep apnea: -Counselled to loose wt -CPAP per primary Plan d/w HD RN. Jorge Burk MD Nephrology, Hypertension, Dialysis, Transplantation Phone no: [phone] Subjective Date of service: 10/03/17 Interval history: Seen on HD. Still having Shortness of breath. Objective - Exam Narrative Exam: GE: AAOX3, Obese lady HEENT: PERRLA Neck: Supple Chest: BL Crackles, Rt Cw tdc CVS: RRR Abd: Soft/Obese, BS+ Ext: 1-2+ BLE edema, LUE AVF Psyche: Appropriate mood - Vital Signs Vital signs: Vital Signs - 12hr 10/03/17 10/03/17 10/03/17 02:31 06:14 08:41 Temperature 97.5 F L 98.1 F Pulse Rate 82 75 Pulse Rate [ 85 Anterior Bilateral Throughout] Respiratory 20 20 Rate Respiratory 19 Rate [Anterior Bilateral Throughout] Blood Pressure 89/45 Blood Pressure 88/44 [Right] O2 Sat by Pulse 94 94 Oximetry 10/03/17 08:42 Temperature Pulse Rate Pulse Rate [ Anterior Bilateral Throughout] Respiratory Rate Respiratory Rate [Anterior Bilateral Throughout] Blood Pressure Blood Pressure [Right] O2 Sat by Pulse 97 Oximetry - Lab 10/03/17 04:13 10/02/17 23:48 Most recent lab results Calcium 8.2 mg/dL (8.4-10.2) L D 10/02/17 23:48
[2017-10-03] MEDS ORDERED: NACL 0.9 (PRIMING MACHINE ONLY DIALYSIS) MC ONE (12:51)
--- NOTE | 2017-10-03 14:03 | Progress Note ---
Assessment and Plan Assessment and plan: 52 YO Female Detention Resident with MO,CVA with LHP, PA, PE, CHF, DM, COPD, ESRD on HD, Chronic Respiratory Failure on 3L O2, RENNY presents to ED for evaluation. Pt states that she has experienced pain in her chest for the past 1 day with worsening symptoms over the past 5 hours. Pt states that the pain is 3- 6/10, crushing in nature, localized to the right lateral chest, nonradiating, intermittent, worse with coughing and deep breathing, as well as palpation, not worsened with exertion, or relieved with rest. Pt also complains of Right leg/ calf swelling over the past week. Pt states that she had undergone dialysis for approximately 1.5 hours and experienced a drop in her blood pressure which caused her to have concern. Pt also acknowledges concomitant productive cough of whitish sputum while at the detention. Patient has been treated with oral Levaquin 750mg daily x 7 days for suspected pneumonia. Pt denies fever, chills , Palpitations, NVD, Syncope, BRBPR, Recent ill contacts. Pt seen and evaluated in ED and found to have symptoms consistent with ACS as well as possible PE. Pt initiated on empiric therapeutic anticoagulation, and cardiology team consulted. Acute on chronic Respiratory failure Morbid obesity Presumed obesity hyperventilation syndrome Acute on chronic congestive heart failure ESRD Diabetes mellitus Severe hypokalemia- ERROR. NOW CORRECTED ON REPEAT LABS THIS AM Type 2 PA secondary to ESRD PLAN * Supportive care * Cardiology and Nephrology input noted, * Unable to obtain CTA OR V/Q AND STRESS TEST due to weight, patient refused dOPPLER and understands associated risk for possible PE, DVT with ultimate consequence not limited to and disability secondary to CVA * conservative managment per cardiology * BIPAP as needed * Dily weight and I/O * Echo pending * obtain record from [facility] * Accucheck AC/HS, insulin sliding scale * DVT/GI prophy * History Interval history: patient seen and examined today reports improvement in shortness of breath and chest pain. Denies any fever, nausea, vomiting or diarrhea. Hospitalist Physical - Physical exam Narrative exam: General appearance: Present: no acute distress, well-nourished, obese (morbidly) - EENT Eyes: Present: PERRL, irregular pupil - Neck Neck: Present: supple, normal ROM - Respiratory Respiratory effort: normal Respiratory: bilateral: diminished - Cardiovascular Rhythm: regular Heart Sounds: Present: S1 & S2. Absent: systolic murmur, diastolic murmur - Extremities Extremities: no ischemia, pulses intact, pulses symmetrical, Full ROM Extremity abnormal: edema (+1) Peripheral Pulses: within normal limits - Abdominal General gastrointestinal: soft, non-tender, non-distended, normal bowel sounds, other (nlarged panus) - Integumentary Integumentary: Present: clear, warm, dry - Psychiatric Psychiatric: appropriate mood/affect, intact judgment & insight, cooperative - Neurologic Neurologic: CNII-XII intact - Constitutional Vitals: Temp Pulse Resp BP Pulse Ox 98.3 F 79 18 112/59 97 10/03/17 11:20 10/03/17 13:30 10/03/17 11:20 10/03/17 13:30 10/03/17 08:42 General appearance: Present: no acute distress Results - Labs CBC & Chem 7: 10/03/17 04:13 10/02/17 23:48 Labs: Laboratory Last Values WBC 8.2 K/mm3 (4.5-11.0) 10/01/17 15:56 RBC 3.39 M/mm3 (3.65-5.03) L 10/01/17 15:56 Hgb 10.0 gm/dl (10.1-14.3) L 10/03/17 04:13 Hct 30.9 % (30.3-42.9) 10/03/17 04:13 MCV 95 fl (79-97) 10/01/17 15:56 MCH 30 pg (28-32) 10/01/17 15:56 MCHC 31 % (30-34) 10/01/17 15:56 RDW 15.5 % (13.2-15.2) H 10/01/17 15:56 Plt Count 173 K/mm3 (140-440) 10/03/17 04:13 Lymph % (Auto) 23.9 % (13.4-35.0) 10/01/17 15:56 [place] % (Auto) 9.7 % (0.0-7.3) H 10/01/17 15:56 Eos % (Auto) 3.6 % (0.0-4.3) 10/01/17 15:56 Baso % (Auto) 0.5 % (0.0-1.8) 10/01/17 15:56 Lymph # 2.0 K/mm3 (1.2-5.4) 10/01/17 15:56 [place] # 0.8 K/mm3 (0.0-0.8) 10/01/17 15:56 Eos # 0.3 K/mm3 (0.0-0.4) 10/01/17 15:56 Baso # 0.0 K/mm3 (0.0-0.1) 10/01/17 15:56 Seg Neutrophils % 62.3 % (40.0-70.0) 10/01/17 15:56 Seg Neutrophils # 5.1 K/mm3 (1.8-7.7) 10/01/17 15:56 PT 15.9 Sec. (12.2-14.9) H 10/01/17 17:29 INR 1.20 (0.87-1.13) H 10/01/17 17:29 APTT 102.6 Sec. (24.2-36.6) H* 10/01/17 17:29 D-Dimer 494.09 ng/mlDDU (0-234) H 10/01/17 17:29 Sodium 143 mmol/L (137-145) 10/02/17 23:48 Potassium 4.1 mmol/L (3.6-5.0) D 10/02/17 23:48 Chloride 98.6 mmol/L (98-107) 10/02/17 23:48 Carbon Dioxide 31 mmol/L (22-30) H 10/02/17 23:48 Anion Gap 18 mmol/L 10/02/17 23:48 BUN 14 mg/dL (7-17) 10/02/17 23:48 Creatinine 5.5 mg/dL (0.7-1.2) H D 10/02/17 23:48 Estimated GFR 8 ml/min 10/02/17 23:48 BUN/Creatinine Ratio 3 % 10/02/17 23:48 Glucose 153 mg/dL (65-100) H 10/02/17 23:48 Calcium 8.2 mg/dL (8.4-10.2) L D 10/02/17 23:48 Troponin T 0.320 ng/mL (0.00-0.029) H* 10/02/17 12:03 NT-Pro-B Natriuret Pep 5815 pg/mL (0-900) H 10/01/17 15:56 Triglycerides 190 mg/dL (2-149) H 10/01/17 15:56 Cholesterol 173 mg/dL (50-199) 10/01/17 15:56 LDL Cholesterol Direct 101 mg/dL (50-130) 10/01/17 15:56 HDL Cholesterol 34 mg/dL (40-59) L 10/01/17 15:56 Cholesterol/HDL Ratio 5.08 % 10/01/17 15:56 Hepatitis A IgM Ab Non-reactive (NonReactive) 10/02/17 12:03 Hep Bs Antigen Non-reactive (Negative) 10/02/17 12:03 Hep B Core IgM Ab Non-reactive (NonReactive) 10/02/17 12:03 Hepatitis C Antibody Non-reactive (NonReactive) 10/02/17 12:03
[2017-10-03] MEDS: MYCOSTATIN TP SCH ×2 (15:46→23:24)
--- NOTE | 2017-10-03 16:27 | Progress Note ---
Assessment and Plan Chest pain, atypical pt exceeds weight limit for an MPI ESRD on dialysis Elevated troponin, nonspecific likely in the setting of renal disease Prior CVA Hypertension DM COPD on 3L oxygen Sleep apnea Morbid obesity Patient is considered a poor candidate for cardiac workup due to multiple co- morbidities. Conservative cardiac management Subjective Date of service: 10/03/17 Interval history: Patient has no complaints. No events on telemetry monitoring. Objective Vital Signs Temp Pulse Pulse Resp Resp BP BP 10/03/17 13:45 78 110/58 10/03/17 13:30 79 112/59 10/03/17 13:15 76 109/58 10/03/17 13:00 75 112/58 10/03/17 12:45 71 106/56 10/03/17 12:30 78 102/60 10/03/17 12:15 78 99/60 10/03/17 12:00 77 103/60 10/03/17 11:45 120 H 113/57 10/03/17 11:30 81 91/45 10/03/17 11:25 78 112/58 10/03/17 11:20 98.3 F 80 18 110/60 10/03/17 08:42 10/03/17 08:41 85 19 10/03/17 06:14 98.1 F 75 20 89/45 10/03/17 02:31 97.5 F L 82 20 88/44 10/02/17 21:39 10/02/17 21:06 84 84 17 10/02/17 19:35 98.3 F 83 20 99/63 Pulse Ox 10/03/17 13:45 10/03/17 13:30 10/03/17 13:15 10/03/17 13:00 10/03/17 12:45 10/03/17 12:30 10/03/17 12:15 10/03/17 12:00 10/03/17 11:45 10/03/17 11:30 10/03/17 11:25 10/03/17 11:20 10/03/17 08:42 97 10/03/17 08:41 10/03/17 06:14 94 10/03/17 02:31 94 10/02/17 21:39 92 10/02/17 21:06 97 10/02/17 19:35 89 - Physical Examination General: No Apparent Distress Cardiac: Positive: Reg Rate and Rhythm - Labs and Meds CBC 10/03/17 Range/Units 04:13 Hgb 10.0 L (10.1-14.3) gm/dl Hct 30.9 (30.3-42.9) % Plt Count 173 (140-440) K/mm3 Comprehensive Metabolic Panel 10/02/17 Range/Units 23:48 Sodium 143 (137-145) mmol/L Potassium 4.1 D (3.6-5.0) mmol/L Chloride 98.6 (98-107) mmol/L Carbon Dioxide 31 H (22-30) mmol/L BUN 14 (7-17) mg/dL Creatinine 5.5 H D (0.7-1.2) mg/dL Glucose 153 H (65-100) mg/dL Calcium 8.2 L D (8.4-10.2) mg/dL
[2017-10-03] MEDS: HEPARIN IV PRN (17:05)
[2017-10-03] MEDS: TYLENOL PO PRN (21:44)
[2017-10-04] MEDS ORDERED: NACL 0.9% 250ML 250 ML IV ONE (00:23)
[2017-10-04 00:49] LABS: Calcium 8.7 mg/dL (8.4-10.2); Chloride 99.4 mmol/L (98-107); Potassium 4.2 mmol/L (3.6-5.0)
[2017-10-04] MEDS: TYLENOL PO PRN (05:15)
[2017-10-04] MEDS: BROVANA NEBU IH SCH (07:49)
[2017-10-04] MEDS: PROVENTIL IH SCH (07:49)
[2017-10-04] MEDS: PULMICORT IH SCH (07:49)
--- NOTE | 2017-10-04 10:28 | Progress Note ---
Assessment and Plan ESRD on hemodialysis: Volume overload improved. -s/p HD yesterday, no HD today. Will eval need daily. -Renally dose all meds -Check BMP/Mg/Phos daily Suspected PE: -VQ Scan/CTPE could not be done due to morbid obesity -Per primary. Acute coronary syndrome: Chest Pain: -Cards consulted, per them -Has h/o CHF per notes Diabetes mellitus type 2 on insulin: -On ISS -Per primary Anemia of chronic disease due to ESRD: -Epogen to keep Hg 10-12 Bone Metabolic disease: -Continue phos binder Morbid obesity: Obstructive Sleep apnea: -Counselled to loose wt -CPAP per primary Jorge Burk MD Nephrology, Hypertension, Dialysis, Transplantation Phone no: [phone] Subjective Date of service: 10/04/17 Interval history: Denies CP/SHOB. s/p HD yesterday. Objective - Exam Narrative Exam: GE: AAOX3, Obese lady HEENT: PERRLA Neck: Supple Chest: Coarse BS BL, Rt Cw tdc CVS: RRR Abd: Soft/Obese, BS+ Ext: 1+ BLE edema, LUE AVF Psyche: Appropriate mood - Vital Signs Vital signs: Vital Signs - 12hr 10/03/17 10/03/17 10/04/17 23:54 23:55 00:00 Temperature 98.3 F 98.3 F 97.5 F L Pulse Rate 76 76 Pulse Rate [ Anterior Bilateral Throughout] Respiratory 22 18 Rate Respiratory Rate [Anterior Bilateral Throughout] Blood Pressure 70/35 Blood Pressure 70/30 [Right] O2 Sat by Pulse 96 Oximetry 10/04/17 10/04/17 10/04/17 01:15 01:18 05:45 Temperature 97.4 F L Pulse Rate 80 69 Pulse Rate [ Anterior Bilateral Throughout] Respiratory 20 Rate Respiratory Rate [Anterior Bilateral Throughout] Blood Pressure Blood Pressure 83/36 100/60 80/43 [Right] O2 Sat by Pulse 95 Oximetry 10/04/17 10/04/17 07:44 08:13 Temperature Pulse Rate Pulse Rate [ 74 69 Anterior Bilateral Throughout] Respiratory Rate Respiratory 18 20 Rate [Anterior Bilateral Throughout] Blood Pressure Blood Pressure [Right] O2 Sat by Pulse 95 Oximetry - Lab 10/03/17 04:13 10/04/17 12:42 Most recent lab results Calcium 8.7 mg/dL (8.4-10.2) 10/03/17 23:56
[2017-10-04] MEDS: PHOSLO PO SCH ×3 (11:24→16:47)
[2017-10-04] MEDS: MILK OF MAGNESIA PO PRN (11:24)
[2017-10-04] MEDS: PEPCID PO SCH (11:26)
[2017-10-04] MEDS ORDERED: FLEET PR ONE ×2 (11:26→17:00)
[2017-10-04] MEDS: HALFPRIN EC PO SCH (11:26)
[2017-10-04] MEDS: HEPARIN SUB-Q SCH (11:27)
[2017-10-04] MEDS: DEMADEX PO SCH (11:29)
[2017-10-04] MEDS: COREG PO SCH (11:29)
[2017-10-04] MEDS: COZAAR PO SCH (11:29)
[2017-10-04 11:30] VITALS: BP 77/28
--- NOTE | 2017-10-04 11:31 | Discharge Summary ---
Providers - Providers Date of Admission: 10/01/17 20:54 Attending physician: CLAUDIA LEW MD 10/01/17 Consult to Cardiac Rehabilitation [CONS] Routine Reason For Exam: Phase I 10/01/17 19:58 Consult to Physician [CONS] Urgent Consulting Provider: KANWAL BURK Reason For Exam: esrd, pulm edema Place consult to:: Dr. Burk Notified:: Answering Service Phone number called:: [phone] Was contact made?: Yes If yes, spoke with:: Dr. Burk Time called:: 19:56 Comment:: Dr. Gutierrez (er dr) spoke with Dr. Burk Primary care physician: HOME AIDE Hospitalization Reason for admission: chest pain Condition: Stable Hospital course: 52 YO Female Custodial Resident with MO,CVA with LHP, IN, PE, CHF, DM, COPD, ESRD on HD, Chronic Respiratory Failure on 3L O2, RENNY presents to ED for evaluation. Pt states that she has experienced pain in her chest for the past 1 day with worsening symptoms over the past 5 hours. Pt states that the pain is 3- 6/10, crushing in nature, localized to the right lateral chest, nonradiating, intermittent, worse with coughing and deep breathing, as well as palpation, not worsened with exertion, or relieved with rest. Pt also complains of Right leg/ calf swelling over the past week. Pt states that she had undergone dialysis for approximately 1.5 hours and experienced a drop in her blood pressure which caused her to have concern. Pt also acknowledges concomitant productive cough of whitish sputum while at the half-way. Patient has been treated with oral Levaquin 750mg daily x 7 days for suspected pneumonia. Pt denies fever, chills , Palpitations, NVD, Syncope, BRBPR, Recent ill contacts. Pt seen and evaluated in ED and found to have symptoms consistent with ACS as well as possible PE. Pt initiated on empiric therapeutic anticoagulation, and cardiology team consulted. Symptoms improved with dialysis. Patient unfortunately could not have stress test or VT or CTA done due to weightlifting limitation. The patient refused a Doppler ultrasound of the lower extremities which could've help to determine if there is a DVT this was explained to the patient in addition to the risk associated the patient refused. Patient reported that she has problem with constipation I did advise about gotten out of her opioid medications. She received an enema. She was noted to be hypotensive which she reports is chronic for her. I did cut down her losartan to 50 twice a day. I recommend blood pressure monitoring. She is stable at this point for discharge she also refused further workup by cardiology and the recommended conservative management. Note that the hypokalemia was an error and was noted corrected on repeat lab without administering of any potassium. Weight loss counseling was provided. Acute on chronic Respiratory failure Morbid obesity Presumed obesity hyperventilation syndrome Acute on chronic congestive heart failure ESRD Diabetes mellitus Severe hypokalemia- ERROR. 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 Disposition: DC/TX-03 SNF [facility] Time spent for discharge: 35 mins Core Measure Documentation - Palliative Care Palliative Care/ Comfort Measures: Not Applicable - Core Measures Any of the following diagnoses?: none - VTE Discharge Requirements Deep Vein Thrombosis/Pulmonary Embolism Present on Admission: No - Heart Failure Discharge Requirements NINA/ARB for LVSD if EF <40%: Yes Beta harlan at discharge: Yes Exam - Physical Exam Narrative exam: General appearance: Present: no acute distress, well-nourished, obese (morbidly) - EENT Eyes: Present: PERRL, irregular pupil - Neck Neck: Present: supple, normal ROM - Respiratory Respiratory effort: normal Respiratory: bilateral: diminished - Cardiovascular Rhythm: regular Heart Sounds: Present: S1 & S2. Absent: systolic murmur, diastolic murmur - Extremities Extremities: no ischemia, pulses intact, pulses symmetrical, Full ROM Extremity abnormal: edema (+1) Peripheral Pulses: within normal limits - Abdominal General gastrointestinal: soft, non-tender, non-distended, normal bowel sounds, other (nlarged panus) - Integumentary Integumentary: Present: clear, warm, dry - Psychiatric Psychiatric: appropriate mood/affect, intact judgment & insight, cooperative - Neurologic Neurologic: CNII-XII intact - Constitutional Vitals: Temp Pulse Resp BP Pulse Ox 97.4 F L 69 20 80/43 95 10/04/17 05:45 10/04/17 08:13 10/04/17 08:13 10/04/17 05:45 10/04/17 07:44 Plan Activity: advance as tolerated, fall precautions Diet: renal Special Instructions: record daily BP diary Follow up with: PRIMARY CAREMD [Primary Care Provider] - 7 Days LARRY PERAZA MD [Staff Physician] - 7 Days KANWAL BURK MD [Staff Physician] - 7 Days Prescriptions: Bisacodyl [Dulcolax suppos] 10 mg ID QDAY PRN #30 supp.rect PRN Reason: Constipation unrelieved by MOM Losartan [Cozaar] 50 mg PO QDAY #30 tablet Oxycodone HCl/Acetaminophen [Percocet 7.5/325 mg] 1 each PO Q8HR PRN #7 tablet PRN Reason: Pain
[2017-10-04] MEDS ORDERED: NACL 0.9% 500 ML 500 ML ONE (12:56)
[2017-10-04] MEDS ORDERED: NACL 0.9% 500 ML IV ONE (12:56)
[2017-10-04 13:36] LABS: Calcium 8.8 mg/dL (8.4-10.2); Chloride 99.9 mmol/L (98-107); Potassium 4.2 mmol/L (3.6-5.0)
== END 2017-10-04 17:42 | disposition home or self-care (01) | DRG 280 ==
LOC: ED 14:03 → 4A 20:54
PROVIDERS: ADMIT Internal Medicine; ATTEND Internal Medicine
PROC: 5A1D70Z Performance of Urinary Filtration, Intermittent, Less than 6 Hours Per Day (ICD-10-PCS; principal; 2017-10-02)
PROC: 5A09357 Assistance with Respiratory Ventilation, Less than 24 Consecutive Hours, Continuous Positive Airway Pressure (ICD-10-PCS; 2017-10-02)
PROC: 5A1D70Z Performance of Urinary Filtration, Intermittent, Less than 6 Hours Per Day (ICD-10-PCS; 2017-10-03)
DX: I21.A1 Myocardial infarction type 2 (principal); N18.6 End stage renal disease; J96.20 Acute and chronic respiratory failure, unspecified whether with hypoxia or hypercapnia; J18.9 Pneumonia, unspecified organism; I26.99 Other pulmonary embolism without acute cor pulmonale; I13.2 Hypertensive heart and chronic kidney disease with heart failure and with stage 5 chronic kidney disease, or end stage renal disease; I69.354 Hemiplegia and hemiparesis following cerebral infarction affecting left non-dominant side; Z68.44 Body mass index [BMI] 60.0-69.9, adult; I24.9 Acute ischemic heart disease, unspecified; E66.01 Morbid (severe) obesity due to excess calories; D63.1 Anemia in chronic kidney disease; E11.22 Type 2 diabetes mellitus with diabetic chronic kidney disease; I50.9 Heart failure, unspecified; I25.2 Old myocardial infarction; Z86.711 Personal history of pulmonary embolism; Z83.3 Family history of diabetes mellitus; Z82.49 Family history of ischemic heart disease and other diseases of the circulatory system; Z88.1 Allergy status to other antibiotic agents; Z88.8 Allergy status to other drugs, medicaments and biological substances; Z88.5 Allergy status to narcotic agent; Z79.82 Long term (current) use of aspirin; Z79.4 Long term (current) use of insulin; Z79.899 Other long term (current) drug therapy; Z99.2 Dependence on renal dialysis
CPT/HCPCS: 36415; 71010; 80048; 80061; 80074; 83880; 84484; 85014; 85018; 85025; 85049; 85379; 85610; 85730; 87040; 93005; 93010; 93306; 94640; 94660; 94760; 96365; 96375; 96376; J1644; J1940; J1956; J7030; J7040; J7050

== ENCOUNTER 2017-12-09 05:46 | Day surgery (SDC) | payer MEDICARE ==
[2017-12-09] MEDS ORDERED: VANCOMYCIN/NS 1 GM/250 ML 1 GM/250 ML BAG IV NR (06:00)
[2017-12-09] MEDS ORDERED: NACL 0.9% 1000 ML 1,000 ML IV SCH (06:00)
[2017-12-09] MEDS ORDERED: NACL BACTERIOSTATIC INFILTRATI ONE (06:28)
[2017-12-09] MEDS ORDERED: HEPARIN 10,000 UNITS/10 ML ONE (07:30)
[2017-12-09] MEDS ORDERED: NACL 0.9% 500 ML 1,000 ML ONE (07:31)
[2017-12-09] MEDS ORDERED: RIFADIN ONE (07:31)
[2017-12-09] MEDS ORDERED: MARCAINE 0.5% INFILTRATI ONE ×2 (07:31→08:30)
--- NOTE | 2017-12-09 07:35 | Anesthesia Consultation ---
Anesthesia Consult and Med Hx Date of service: 12/09/17 - Airway Anesthetic Teeth Evaluation: Poor (missing) ROM Head & Neck: Inadequate Mental/Hyoid Distance: Inadequate Mallampati Class: Class IV Intubation Access Assessment: Possibly Difficult - Pulmonary Exam CTA: Yes - Cardiac Exam Cardiac Exam: RRR - Pre-Operative Health Status ASA Pre-Surgery Classification: ASA4 Proposed Anesthetic Plan: General, Local, MAC Nerve Block: brachial plexus block - Pulmonary COPD: Yes Home Oxygen Therapy: Yes (on 3 L o2) Hx Pneumonia: Yes Hx Sleep Apnea: Yes - Cardiovascular System Hx Hypertension: Yes Hx Coronary Artery Disease: Yes Hx Heart Attack/AMI: Yes - Central Nervous System CVA: Yes (Left side weak) - Endocrine Hx Renal Disease: Yes Hx End Stage Renal Disease: Yes - Other Systems Hx Obesity: Yes - Additional Comments Anesthesia Medical History Comments: no pulmonary consult note. left sided weakness, COPD on home O2. poor candidate for brachial plexus block. high risk for GA. Will check with surgeon to do local with minimal sedation
[2017-12-09] MEDS ORDERED: XYLOCAINE MPF 2% ONE (07:36)
[2017-12-09] MEDS ORDERED: DIPRIVAN 10 MG/ML IV ONE (07:36)
[2017-12-09] MEDS ORDERED: DILAUDID ONE (07:38)
[2017-12-09 07:41] LABS: Basophils % (Auto) 0.7 % (0.0-1.8); Eosinophils # (Auto) 0.4 K/mm3 (0.0-0.4); Eosinophils % (Auto) 5.5 % (0.0-4.3); Hematocrit 38.6 % (30.3-42.9); Hemoglobin 12.3 gm/dl (10.1-14.3); Lymphocytes % (Auto) 29.5 % (13.4-35.0); Mean Corpuscular HGB Conc 32 % (30-34); Mean Corpuscular Hemoglobin 30 pg (28-32); Mean Corpuscular Volume 94 fl (79-97); Monocytes # (Auto) 0.8 K/mm3 (0.0-0.8); Monocytes % (Auto) 11.8 % (0.0-7.3); Platelet Count 184 K/mm3 (140-440); Red Blood Count 4.11 M/mm3 (3.65-5.03); Red Cell Distribution Width 14.6 % (13.2-15.2)
[2017-12-09 07:49] LABS: Calcium 8.9 mg/dL (8.4-10.2)
--- NOTE | 2017-12-09 07:56 | Anesthesia Day of Surgery ---
Anesthesia Day of Surgery - Day of Surgery Patient Examined: Yes Patient H&P Reviewed: Yes Patient is NPO: Yes Beta Blockers: No (not given at jail. HR 66. BP 101/52)
[2017-12-09] MEDS ORDERED: VANCOMYCIN/0.45 NS 1 GM/250 ML 1 GM/250 ML BAG IV SCH (08:00)
[2017-12-09] MEDS ORDERED: NACL 0.9% IR ONE (08:30)
[2017-12-09] MEDS ORDERED: HEPARIN 10,000 UNITS/10 ML IV ONE (08:30)
[2017-12-09] MEDS ORDERED: NACL 0.9% 500 ML IV ONE (08:30)
[2017-12-09] MEDS ORDERED: NACL 0.9% 500 ML IRRIGATION ONE (08:30)
[2017-12-09] MEDS ORDERED: XYLOCAINE 1%/ EPI 1:100,000 INFILTRATI ONE ×3 (08:30→09:08)
[2017-12-09] MEDS ORDERED: KETALAR ONE (08:34)
[2017-12-09] MEDS ORDERED: VERSED ONE (08:36)
--- NOTE | 2017-12-09 10:42 | Short Stay Summary ---
Short Stay Documentation Date of service: 12/09/17 Narrative H&P: See H&P - History H&P: obtained from office - Allergies and Medications Current Medications: Allergies amoxicillin Allergy (Verified 12/05/17 15:20) Unknown codeine Allergy (Verified 12/05/17 15:20) Unknown potassium chloride Allergy (Verified 12/05/17 15:20) Unknown prochlorperazine [From Compazine] Allergy (Verified 12/05/17 15:20) Unknown Home Medications Medication Instructions Recorded Confirmed Last Taken Type Aspirin [Adult Low Dose Aspirin EC] 81 mg PO QDAY 10/01/17 12/05/17 Unknown History Calcium Acetate [Phoslo] 2 cap PO TIDWM 10/01/17 12/05/17 Unknown History Carvedilol [Coreg] 6.25 mg PO BID 10/01/17 12/05/17 Unknown History Fluticasone/Salmeterol [Advair 1 puff IH BID 10/01/17 12/05/17 Unknown History 250-50 Diskus] Insulin Aspart [NovoLOG Flexpen] See Protocol SQ AC 10/01/17 12/05/17 Unknown History Magnesium Hydroxide [Milk of 30 ml PO HS 10/01/17 12/05/17 Unknown History Magnesia] Nystatin Oint [Mycostatin Oint] 1 applicatio TP BID 10/01/17 12/05/17 Unknown History Polyethylene Glycol 3350 [Miralax 17 gm PO QDAY PRN 10/01/17 12/05/17 Unknown History 3350] Torsemide [Demadex] 20 mg PO QDAY 10/01/17 12/05/17 Unknown History Bisacodyl [Dulcolax suppos] 10 mg [place] QDAY PRN #30 supp.rect 10/04/17 12/05/17 Unknown Rx Losartan [Cozaar] 50 mg PO QDAY #30 tablet 10/04/17 12/05/17 Unknown Rx Oxycodone HCl/Acetaminophen 1 each PO Q8HR PRN #7 tablet 10/04/17 12/05/17 Unknown Rx [Percocet 7.5/325 mg] Budesonide [Pulmicort] 0.5 mg IH Q12HR 12/05/17 12/05/17 Unknown History Ipratropium/Albuterol Sulfate 1 ampul IH Q6HR 12/05/17 12/05/17 Unknown History [DUONEB *Not for PRN Use*] Active Medications Sodium Chloride (Nacl 0.9% 1000 Ml) 1,000 mls @ 42 mls/hr IV DIRECT ANISH Last Admin: 12/09/17 07:20 Dose: 42 mls/hr Vancomycin HCl (Vancomycin/0.45 Ns 1 Gm/250 Ml) 1 gm in 250 mls @ 167.007 mls/ hr IV PREOP ANISH Last Admin: 12/09/17 07:32 Dose: 167.007 mls/hr - Brief post op/procedure progress note Date of procedure: 12/09/17 Pre-op diagnosis: ESRD Post-op diagnosis: same Procedure: Creation of Left Arm AV Graft with 6 mm Bovine Graft Anesthesia: MAC, local Surgeon: CONNOR MATTHEWS Estimated blood loss: minimal Pathology: none Condition: stable - Disposition Condition at discharge: Good Disposition: DC/TX-03 SNF [facility] Short Stay Discharge Plan Activity: other (no heavy lifting with left arm) Wound: open to air, keep clean and dry, other (okay to wash the wound with soap and water but do not soak in water) Special Instructions: other (no blood pressure or iv in left arm) Follow up with: CONNOR MATTHEWS MD [Staff Physician] - 14 Days Prescriptions: HYDROcodone/APAP 7.5-325 [[place] 7.5/325] 1 each PO Q6HR PRN #40 tablet PRN Reason: Pain
--- NOTE | 2017-12-09 10:47 | Operative Report ---
Operative Report Operative Report: Date of procedure: 12/09/2017 Pre-operative diagnosis: End-Stage Renal Disease Post-operative diagnosis: Same Procedure(s): 1. Creation of Left Brachial Artery to Axillary Vein AV Graft with 6 mm Bovine Graft Surgeon: Herman Mari MD Application Packaging Specialist: None Anesthesia: Local/MAC EBL: Minimal Counts: Correct Complications: None Condition: Stable Findings: Successful Creation of Left Arm AV Graft Specimen: None Indication: The patient is a 52 yo female with a history of ESRD on hemodialysis through a right internal jugular permacath. She is in need of nursing home dialysis access and is suitable candidate for an AV graft. She was given the risk, benefits, and alternative procedures, and consented to the procedure. Description of Procedure: The patient was brought to the operating room and laid in supine position after general endotracheal anesthesia was achieved the left arm was prepped and draped in normal sterile fashion. A longitudinal incision was made on the medial aspect of the arm just proximal to the antecubital crease and carried down to the brachial artery using sharp dissection. The brachial artery was dissected out circumferentially both proximally and distally and controlled with vessel loops. A second incision was created in longitudinal fashion on the medial aspect of the arm just distal to the axillary crease and carried down to the axillary vein using sharp dissection. Axillary vein was dissected out circumferentially and controlled with a vessel loop. I then used a Bharti- Wick tunneler to tunnel from the brachial artery incision to the axillary vein incision and then put an 6 mm bovine through the tunnel. I infused with heparinized saline to ensure that it was not twisted or kinked. I put the brachial artery vessel loops on tension controlling the flow and then created an arteriotomy using an 11 blade and Manzano scissors. I beveled the graft and created an end-to-side anastomosis using 6-0 Prolene running fashion. I clamped the graft just proximal to the anastomosis and then released the vessel loops restoring flow in the brachial artery. I placed quick clot in incision to achieve hemostasis. I cut the proximal end of the graft to the appropriate length and beveled the graft in preparation for a venous anastomosis. I controlled the axillary vein a Satinsky clamp and created a venotomy using an 11 blade and Manzano scissors. I created an end to side anastomosis using a 6-0 Prolene in running fashion. Prior to completing the anastomosis I flushed the graft to ensure there was no thrombus and then completed the anastamosis. I released all clamps allowing flow into the AV graft which had an excellent thrill. I packed the wound with quick clot to achieve hemostasis. I anesthetized both wounds with Marcaine and then closed both wounds in 2 layers using 3-0 Vicryl in running fashion in the deep dermal layer and 4-0 Monocryl in running fashion the subcuticular layer. I dressed both wounds with Surgicel. The patient tolerated the procedure well all sponge needle and instrument counts were correct the patient was taken to recovery in stable condition.
[2017-12-09 12:58] VITALS: BP 110/73
--- NOTE | 2017-12-09 13:23 | Post Anesthesia Evaluation ---
- Post Anesthesia Evaluation Patient Participated: Yes Airway Patent: Yes Stable Respiratory Function: Yes Nausea/Vomiting: No Temp > 96.8F: Yes Pain Manageable: Yes Adequeate Hydration: Yes Anesthesia Complications: No
== END 2017-12-09 13:55 ==
LOC: OR 05:46
PROVIDERS: ATTEND Surgery Vascular Surgery
DX: I12.0 Hypertensive chronic kidney disease with stage 5 chronic kidney disease or end stage renal disease (principal); E11.22 Type 2 diabetes mellitus with diabetic chronic kidney disease; N18.6 End stage renal disease; J44.9 Chronic obstructive pulmonary disease, unspecified; I25.10 Atherosclerotic heart disease of native coronary artery without angina pectoris; I25.2 Old myocardial infarction; I69.954 Hemiplegia and hemiparesis following unspecified cerebrovascular disease affecting left non-dominant side; E66.9 Obesity, unspecified; Z79.899 Other long term (current) drug therapy; Z88.1 Allergy status to other antibiotic agents; Z88.5 Allergy status to narcotic agent; Z88.8 Allergy status to other drugs, medicaments and biological substances; Z68.43 Body mass index [BMI] 50.0-59.9, adult
CPT/HCPCS: 36415; 36830; 80048; 82962; 85025; C1768; J1170; J1644; J2250; J2704; J3370; J3490; J7030; J7040

== ENCOUNTER 2017-12-31 14:45 | Emergency (ER) | payer MEDICARE ==
[2017-12-31] MEDS ORDERED: ZOFRAN IM ONE (16:44)
[2017-12-31] MEDS ORDERED: MORPHINE IM ONE (16:44)
--- NOTE | 2017-12-31 16:54 | Emergency Department Report ---
ED Fall HPI - General Chief Complaint: Fall Stated Complaint: FALL Time Seen by Provider: 12/31/17 16:37 Source: EMS Mode of arrival: Stretcher - History of Present Illness Initial Comments: Patient is 52 years old female morbidly obese history of end stage renal disease on dialysis. Patient brought to the ER by EMS for evaluation of a fall after she finished her dialysis this afternoon. Patient was transferring from dialysis chair to the stretcher when she fell on her right side. Patient is complaining of right hip pain, back pain, chest pain, abdominal pain, neck pain. Patient does not know if she passed out or not. MD Complaint: fall -: Sudden Fall From: wheelchair When Fall Occurred: just prior to arrival Fall Witnessed: no Place Fall Occurred: other (dialysis Center) Loss of Consciousness: none Prolonged Down Time?: no Location: head, neck, chest, back, abdomen, pelvis Quality: sharp Associated Symptoms: denies, abdominal pain. denies: numbness, weakness, chest paint, shortness of breath, hematuria - Related Data Home Medications Medication Instructions Recorded Confirmed Last Taken Aspirin [Adult Low Dose Aspirin EC] 81 mg PO QDAY 10/01/17 12/05/17 12/08/17 Calcium Acetate [Phoslo] 2 cap PO TIDWM 10/01/17 12/05/17 12/08/17 Carvedilol [Coreg] 6.25 mg PO BID 10/01/17 12/05/17 12/08/17 Fluticasone/Salmeterol [Advair 1 puff IH BID 10/01/17 12/05/17 12/08/17 250-50 Diskus] Insulin Aspart [NovoLOG Flexpen] See Protocol SQ AC 10/01/17 12/05/17 12/08/17 Magnesium Hydroxide [Milk of 30 ml PO HS 10/01/17 12/05/17 12/08/17 Magnesia] Nystatin Oint [Mycostatin Oint] 1 applicatio TP BID 10/01/17 12/05/17 12/08/17 Polyethylene Glycol 3350 [Miralax 17 gm PO QDAY PRN 10/01/17 12/05/17 12/08/17 3350] Torsemide [Demadex] 20 mg PO QDAY 10/01/17 12/05/17 12/08/17 Budesonide [Pulmicort Respules] 0.5 mg IH Q12HR 12/05/17 12/05/17 12/08/17 Ipratropium/Albuterol Sulfate 1 ampul IH Q6HR 12/05/17 12/05/17 12/08/17 [DUONEB *Not for PRN Use*] Previous Rx's Medication Instructions Recorded Last Taken Type Bisacodyl [Dulcolax suppos] 10 mg [place] QDAY PRN #30 supp.rect 10/04/17 12/08/17 Rx Losartan [Cozaar] 50 mg PO QDAY #30 tablet 10/04/17 12/08/17 Rx Oxycodone HCl/Acetaminophen 1 each PO Q8HR PRN #7 tablet 10/04/17 12/08/17 Rx [Percocet 7.5/325 mg] HYDROcodone/APAP 7.5-325 [[place] 1 each PO Q6HR PRN #40 tablet 12/09/17 Unknown Rx 7.5/325] Allergies Allergy/AdvReac Type Severity Reaction Status Date / Time amoxicillin Allergy Unknown Verified 12/05/17 15:20 codeine Allergy Unknown Verified 12/05/17 15:20 potassium chloride Allergy Unknown Verified 12/05/17 15:20 prochlorperazine Allergy Unknown Verified 12/05/17 15:20 [From Compazine] ED Review of Systems ROS: Stated complaint: FALL Other details as noted in HPI Comment: All other systems reviewed and negative Constitutional: denies: chills, fever Respiratory: denies: cough, shortness of breath, SOB with exertion, SOB at rest Cardiovascular: chest pain Gastrointestinal: abdominal pain. denies: nausea, vomiting Musculoskeletal: back pain. denies: joint swelling, myalgia Neurological: denies: headache, weakness, numbness, abnormal gait ED Past Medical Hx - Past Medical History Hx Hypertension: Yes Hx CVA: Yes (residual left-sided weakness) Hx Heart Attack/AMI: Yes Hx Congestive Heart Failure: Yes Hx Diabetes: Yes Hx Renal Disease: Yes Hx COPD: Yes Additional medical history: morbid obesity. sleep apnea - Social History Smoking Status: Never Smoker Substance Use Type: None - Medications Home Medications: Home Medications Medication Instructions Recorded Confirmed Last Taken Type Aspirin [Adult Low Dose Aspirin EC] 81 mg PO QDAY 10/01/17 12/05/17 12/08/17 History Calcium Acetate [Phoslo] 2 cap PO TIDWM 10/01/17 12/05/17 12/08/17 History Carvedilol [Coreg] 6.25 mg PO BID 10/01/17 12/05/17 12/08/17 History Fluticasone/Salmeterol [Advair 1 puff IH BID 10/01/17 12/05/17 12/08/17 History 250-50 Diskus] Insulin Aspart [NovoLOG Flexpen] See Protocol SQ AC 10/01/17 12/05/17 12/08/17 History Magnesium Hydroxide [Milk of 30 ml PO HS 10/01/17 12/05/17 12/08/17 History Magnesia] Nystatin Oint [Mycostatin Oint] 1 applicatio TP BID 10/01/17 12/05/17 12/08/17 History Polyethylene Glycol 3350 [Miralax 17 gm PO QDAY PRN 10/01/17 12/05/17 12/08/17 History 3350] Torsemide [Demadex] 20 mg PO QDAY 10/01/17 12/05/17 12/08/17 History Bisacodyl [Dulcolax suppos] 10 mg [place] QDAY PRN #30 supp.rect 10/04/17 12/05/17 Rx Losartan [Cozaar] 50 mg PO QDAY #30 tablet 10/04/17 12/05/17 12/08/17 Rx Oxycodone HCl/Acetaminophen 1 each PO Q8HR PRN #7 tablet 10/04/17 12/05/1712/08 Rx [Percocet 7.5/325 mg] Budesonide [Pulmicort Respules] 0.5 mg IH Q12HR 12/05/17 12/05/17 12/08/17 History Ipratropium/Albuterol Sulfate 1 ampul IH Q6HR 12/05/17 12/05/17 12/08/17 History [DUONEB *Not for PRN Use*] HYDROcodone/APAP 7.5-325 [[place] 1 each PO Q6HR PRN #40 tablet 12/09/17 Unknown Rx 7.5/325] ED Physical Exam - General Limitations: Physical Limitation General appearance: alert - Head Head exam: Present: normocephalic, normal inspection - Eye Eye exam: Present: normal appearance, PERRL - ENT ENT exam: Present: normal exam, normal orophraynx, mucous membranes moist - Neck Neck exam: Present: normal inspection, full ROM - Respiratory Respiratory exam: Present: normal lung sounds bilaterally, chest wall tenderness. Absent: respiratory distress, wheezes - Cardiovascular Cardiovascular Exam: Present: regular rate, normal rhythm, normal heart sounds - GI/Abdominal GI/Abdominal exam: Present: soft. Absent: distended, tenderness, guarding, rebound - Back Exam Back exam: Present: normal inspection - Neurological Exam Neurological exam: Present: alert, oriented X3, CN II-XII intact - Skin Skin exam: Present: warm, dry, intact ED Course Vital Signs 12/31/17 12/31/17 12/31/17 14:32 15:29 15:30 Temperature Pulse Rate Respiratory Rate Blood Pressure 134/78 122/65 Blood Pressure [Right] O2 Sat by Pulse 94 96 Oximetry 12/31/17 12/31/17 12/31/17 15:36 15:38 15:40 Temperature 98.3 F Pulse Rate 74 Respiratory 18 Rate Blood Pressure 122/65 122/65 134/78 Blood Pressure [Right] O2 Sat by Pulse 97 96 95 Oximetry 12/31/17 12/31/17 12/31/17 15:45 15:50 15:52 Temperature Pulse Rate Respiratory Rate Blood Pressure 137/77 137/77 137/77 Blood Pressure [Right] O2 Sat by Pulse 95 97 96 Oximetry 12/31/17 12/31/17 12/31/17 15:54 15:56 16:00 Temperature 98.3 F Pulse Rate 74 Respiratory 18 Rate Blood Pressure 137/77 138/80 Blood Pressure 122/65 [Right] O2 Sat by Pulse 96 97 92 Oximetry 12/31/17 12/31/17 12/31/17 16:03 16:06 16:08 Temperature Pulse Rate Respiratory Rate Blood Pressure 138/80 138/80 138/80 Blood Pressure [Right] O2 Sat by Pulse 98 95 96 Oximetry 12/31/17 12/31/17 12/31/17 16:10 16:12 16:15 Temperature Pulse Rate Respiratory Rate Blood Pressure 138/80 138/80 138/80 Blood Pressure [Right] O2 Sat by Pulse 93 97 96 Oximetry 12/31/17 12/31/17 12/31/17 16:17 16:18 16:22 Temperature Pulse Rate Respiratory Rate Blood Pressure 138/80 138/80 138/80 Blood Pressure [Right] O2 Sat by Pulse 98 96 96 Oximetry 12/31/17 12/31/17 12/31/17 16:24 16:26 16:28 Temperature Pulse Rate Respiratory Rate Blood Pressure 138/80 138/80 138/80 Blood Pressure [Right] O2 Sat by Pulse 94 97 94 Oximetry 12/31/17 12/31/17 12/31/17 16:30 16:32 16:34 Temperature Pulse Rate Respiratory Rate Blood Pressure 140/65 140/65 140/65 Blood Pressure [Right] O2 Sat by Pulse 93 93 78 L Oximetry 12/31/17 12/31/17 12/31/17 16:40 16:42 16:44 Temperature Pulse Rate Respiratory Rate Blood Pressure 140/65 140/65 140/65 Blood Pressure [Right] O2 Sat by Pulse 88 95 93 Oximetry 12/31/17 12/31/17 12/31/17 16:46 16:48 16:50 Temperature Pulse Rate Respiratory Rate Blood Pressure 139/73 139/73 139/73 Blood Pressure [Right] O2 Sat by Pulse 93 91 92 Oximetry 12/31/17 12/31/17 12/31/17 16:52 16:54 16:56 Temperature Pulse Rate Respiratory Rate Blood Pressure 139/73 139/73 139/73 Blood Pressure [Right] O2 Sat by Pulse 93 93 94 Oximetry 12/31/17 12/31/17 12/31/17 16:58 17:00 17:02 Temperature Pulse Rate Respiratory Rate Blood Pressure 139/73 137/76 139/73 Blood Pressure [Right] O2 Sat by Pulse 97 95 96 Oximetry 12/31/17 12/31/17 12/31/17 17:05 17:06 18:02 Temperature Pulse Rate Respiratory 18 Rate Blood Pressure 137/76 137/76 Blood Pressure [Right] O2 Sat by Pulse 96 86 95 Oximetry - Reevaluation(s) Reevaluation #1: 12/31/17 17:55 The patient was taken to CT scan but patient unable to fit into our scanner. I called [facility] to transfer patient, [place] have a bigger CT scan and they can accommodate her weight. I discussed was Dr. Joshua Davidson from [facility] and she accepted the patient to be transferred to [facility] ER. Reevaluation #2: 12/31/17 18:17 Patient insisted that backboard and c-collar being removed because is very uncomfortable for her. I explained to the patient the importance and the need for this c-collar and backboard to protect her spinal cord, patient understood and she still wanted them to be removed. She is alert oriented 3 and able to make sound decision. Critical care attestation.: If time is entered above; I have spent that time in minutes in the direct care of this critically ill patient, excluding procedure time. ED Disposition Clinical Impression: Fall, Morbid obesity, ESRD (end stage renal disease), Head injury, Neck injury , Chest injury, Abdominal injury, Pelvic injury Disposition: DC/TX-70 ANOTHER TYPE [facility] Is pt being admited?: No Condition: Stable Referrals: PRIMARY CARE, [Primary Care Provider] - 3-5 Days
[2017-12-31 18:06] VITALS: BP 137/76
== END 2017-12-31 23:09 | disposition other institution (70) ==
LOC: ED 14:45
DX: S19.9XXA Unspecified injury of neck, initial encounter (principal); S29.9XXA Unspecified injury of thorax, initial encounter; I13.2 Hypertensive heart and chronic kidney disease with heart failure and with stage 5 chronic kidney disease, or end stage renal disease; N18.6 End stage renal disease; E11.22 Type 2 diabetes mellitus with diabetic chronic kidney disease; J44.9 Chronic obstructive pulmonary disease, unspecified; Z99.2 Dependence on renal dialysis; G47.30 Sleep apnea, unspecified; W18.39XA Other fall on same level, initial encounter; Y93.89 Activity, other specified; Y92.89 Other specified places as the place of occurrence of the external cause; Y99.8 Other external cause status
CPT/HCPCS: 96372; 99283; J2270; J2405

== ENCOUNTER 2018-07-11 09:38 | Day surgery (SDC) | payer MEDICARE ==
[~2018-07-11 09:38] MED LIST: NACL 0.9% 1000 ML 1,000 ML IV SCH
[2018-07-11] MEDS: VANCOMYCIN/NS 1 GM/250 ML 1 GM/250 ML BAG IV NR ×2 (14:41→15:50)
[2018-07-11] MEDS ORDERED: HEPARIN/NS 5000 UNIT/500ML(CATH LAB) 1,000 ML IR ONE (15:10)
[2018-07-11] MEDS ORDERED: HEPARIN 10,000 UNITS/10 ML ONE (15:11)
[2018-07-11] MEDS: VERSED ONE ×3 (15:59→16:58)
[2018-07-11] MEDS: SUBLIMAZE ONE ×2 (16:00→16:58)
[2018-07-11] MEDS: XYLOCAINE 2% INFILTRATI ONE ×2 (16:00→16:08)
[2018-07-11] MEDS ORDERED: CATHFLO ONE (16:15)
--- NOTE | 2018-07-11 17:39 | Short Stay Summary ---
Short Stay Documentation Date of service: 07/11/18 Narrative H&P: 53 year old female with ESRD and presents with thrombosed AVG. - History Principal diagnosis: Thrombosed AVG Past Medical History: diabetes, dialysis Past Surgical History: Other (AVG placement ) - Allergies and Medications Current Medications: Allergies amoxicillin Allergy (Verified 12/05/17 15:20) Unknown codeine Allergy (Verified 12/05/17 15:20) Unknown potassium chloride Allergy (Verified 12/05/17 15:20) Unknown prochlorperazine [From Compazine] Allergy (Verified 12/05/17 15:20) Unknown Home Medications Medication Instructions Recorded Confirmed Last Taken Type Calcium Acetate [Phoslo] 2 cap PO TIDWM 10/01/17 06/17/18 1 Month Ago History ~05/17/18 Carvedilol [Coreg] 6.25 mg PO BID 10/01/17 06/17/18 06/16/18 History Torsemide [Demadex] 20 mg PO QDAY 10/01/17 06/17/18 06/16/18 History Losartan [Cozaar] 50 mg PO QDAY #30 tablet 10/04/17 06/17/18 06/16/18 Rx Oxycodone HCl/Acetaminophen 1 each PO Q8HR PRN #7 tablet 10/04/17 06/17/1806/15 Rx [Percocet 7.5/325 mg] Budesonide [Pulmicort Respules] 0.5 mg IH Q12HR 12/05/17 06/17/18 06/16/18 History Ciprofloxacin TAB 500 mg PO BID 06/18/18 06/18/18 Unknown History metroNIDAZOLE [Flagyl TAB] 500 mg PO TID 06/18/18 06/18/18 Unknown History ALBUTEROL NEB's [Proventil 0.083% 2.5 mg IH Q4HRT PRN nebu 06/19/18 Unknown Rx NEBS] Acetaminophen [Acetaminophen TAB] 650 mg PO Q4H PRN tablet 06/19/18 Unknown Rx Torsemide [Demadex] 20 mg PO BID@0600,1800 tablet 06/19/18 Unknown Rx Active Medications Sodium Chloride (Nacl 0.9% 1000 Ml) 1,000 mls @ 42 mls/hr IV DIRECT ANISH Last Admin: 07/11/18 15:50 Dose: 100 mls Vancomycin HCl (Vancomycin/Ns 1 Gm/250 Ml) 1 gm in 250 mls @ 166.667 mls/hr IV PREOP NR; Protocol Stop: 07/11/18 23:00 Last Admin: 07/11/18 15:50 Dose: 166.667 mls/hr - Physical exam General appearance: no acute distress, obese HEENT: EOMI Lungs: Normal air movement Gastrointestinal: normal - Brief post op/procedure progress note Date of procedure: 07/11/18 Pre-op diagnosis: Thrombosed AVG Post-op diagnosis: other (thrombosed AVG, mid graft backwall bleeding) Procedure: Central and peripheral dialysis angioplasty AVG thrombectomy Mid graft balloon tamponade for 23 minutes Anesthesia: local Surgeon: KIRBY BANKS Estimated blood loss: minimal Condition: stable - Hospital course Hospital course: Ready for discharge - Disposition Condition at discharge: Stable Disposition: [id number] TO HOME OR SELFCARE - Discharge Diagnoses (1) AV graft thrombosis Status: Acute (2) ESRD (end stage renal disease) Status: Acute (3) Morbid obesity Status: Acute Short Stay Discharge Plan Activity: advance as tolerated Weight Bearing Status: Weight Bear as Tolerated Diet: renal Wound: keep clean and dry Additional Instructions: Possible admission post intervention for dialysis. Nurse will contact crop adjuster Follow up with: NASIMA SOTO MD [Primary Care Provider] - 7 Days
--- NOTE | 2018-07-11 17:40 | Event Note ---
Date: 07/11/18 Do not recommend heparin with dialysis for the next 3 treatments
--- NOTE | 2018-07-11 17:42 | Post Operative Note ---
Date of procedure: 07/11/18 Pre-op diagnosis: ESRD Post-op diagnosis: same Findings: Mid graft extravasation from backwall puncture treated with balloon tamponade x 23 minutes. Procedure: Central and peripheral angioplasty of dialysis access Mid graft baloon tamponade AVG thrombectomy Anesthesia: local (w/ conscious sedation) Surgeon: KIRBY BANKS Estimated blood loss: minimal Condition: stable Disposition: no change
--- NOTE | 2018-07-11 17:43 | Operative Report ---
Operative Report Operative Report: EXAM: 1. Ultrasound guided access of the AV graft towards the venous limb. 2. Selection of the left subclavian vein with venography 3. Angioplasty of the SVC, and left innominate vein with 12 mm x 60 mm angioplasty balloon 4. Infusion of 4 mg of TPA throughout the AV graft 5. Angioplasty of the AV graft with an 8 mm x 80 mm angioplasty balloon 6. Trerotola Mechanical thrombectomy of the AV graft 7. Aracelis sweep of the AV graft from the venous sheath to the central veins 8. Ultrasound guided access of the AV graft towards the arterial limb. 9. Selection of the brachial artery in a retrograde fashion with angiography of the left upper extremity 10. Aracelis sweep of the AV graft from the arterial anastomosis to the arterial sheath 11. Balloon tamponade of the mid graft extravasation with balloon for 23 minutes with resolution of extravasation 12. Angioplasty of the perianastamotic porion of the graft with an 8 mm x 40 mm angiooplasty balloon 13. Angioplasty of the brachial artery with a 6 mm x 40 mm angioplasty balloon after selection of the brachial artery in an antegrade fashion INDICATION: THROMBOSED LEFT ARM AV GRAFT WITH END-STAGE RENAL DISEASE. DATE: 07/11/18 MEDICATIONS: Please refer to nursing documentation for complete list of medications and heparin administration. VERSED AND FENTANYL TITRATED TO MODERATE SEDATION. THE PATIENT WAS MONITORED UNDER CONTINUOUS CARDIOPULMONARY MONITORING THROUGHOUT THE CASE. COMPLICATIONS: NONE IMMEDIATE INDIRECT FIRE INFANTRYMAN: KIRBY BANKS MD PROCEDURE: The procedure was discussed with the patient and the risks, benefits, and alternatives were discussed with the patient. Informed consent was obtained. The patient was transported into the angiography suite in stable condition and placed on the angiographic table. The right arm was assessed under real-time ultrasound which demonstrated a thrombosed left arm AV graft. The patient was prepped and draped in a sterile fashion. Lidocaine was used to anesthetize the skin. Under ultrasound guidance, the AV graft was punctured with the needle pointing towards the venous limb. 0.018 inch wire was advanced through the needle and this was exchanged for a transitional dilator. The inner dilator and wire were removed and a 0.035 inch Arcos wire was advanced through the transitional dilator. The dilator was exchanged for a 7 Greek short sheath. Angled catheter was advanced over the wire and the wire was advanced into the inferior vena cava under fluoroscopic guidance. Then the wire was removed and the Angled catheter was used to perform a pullback venogram. Digital subtraction venography was performed in the left subclavian vein which demonstrated a 50 percent narrowing of the left innominate vein and SVC junction. 12 mm x 60 mm angioplasty balloon was used to perform angioplasty of the left innominate vein and SVC. Repeat digital subtraction angiography demonstrated 20 percent residual narrowing. The catheter was pulled back until clot was encountered. 4 mg of TPA were infused through the length of the clot to the sheath as the arterial anastomosis was manually compressed. Catheter was exchanged for an 8 mm x 8 cm balloon and the venous limb was sequentially venoplasty. Trerotola thrombectomy device was used multiple times through the venous limb. Trerotola device was then removed. Angled catheter and Arcos wire were negotiated into the inferior vena cava. The Aracelis balloon was used to sweep from the sheath to the central veins. The arm was then punctured towards the arterial anastomosis under ultrasound guidance. 0.018 inch wire was advanced through the needle and exchanged for transitional dilator. The inner dilator and wire were removed and a 0.035 inch Arcos wire was advanced to the transitional dilator. The dilator was exchanged for 6 Greek short sheath. The angled catheter was advanced over the 0.035 wire and the wire was advanced into the [place] brachial artery in a retrograde fashion. Digital subtraction angiography was performed which demonstrated patency of the brachial artery proximal distal to the anastomosis with flow-limiting thrombus in the peripheral portion of the AV graft. The brachial artery to the anastamosis had a 50% focal narrowing at the ostium. Aracelis catheter was inflated and use to sweep the anastomosis multiple times, pulling the plug towards the venous limb. Blood was aspirated from both sheaths. Aracelis catheter was exchanged for the angled catheter and digital subtraction angiography was performed. This demonstrated extravasation from the midportion of the graft, likely due to a dialysis access back wall puncture, patency of the brachial artery proximal to the anastomosis, and 50% narrowing of the brachial artery distal to the anastomosis. Digital subtraction angiography demonstrated no evidence of outflow narrowing in the axillary vein, subclavian vein, and with 20% residual narrowing of the left innominate vein to SVC junction. 8 mm angioplasty balloon was used to tamponade the area of extravasation for 5 minutes, and repeat digital subtraction angiography demonstrated residual extravasation. This area was a suboptimal area to stent graft as it was at the area of stent use and would make the dialysis access severely limited justifying the prolonged use of an angioplasty balloon. This was repeated for 8 minutes demonstrating residual extravasation at the mid graft. This was repeated for 10 minutes which then resulted in resolution of the extravasation. Digital subtraction angiography demonstrated some narrowing that started to occur in the andrzej-anastomotic portion of the AV graft likely secondary to mild thrombus formation. 8 mm angioplasty balloon was used to angioplasty the segments with resolution of the narrowing. There was no axillary vein outflow narrowing. No residual narrowing in the graft. The subclavian narrowing, and with 20% narrowing of the left innominate vein SVC junction. The brachial artery antegrade to the AV graft was selected and 6 mm x 40 mm angioplasty balloon is used to angioplasty this portion resulting in resolution of the narrowing of the brachial artery antegrade to the anastomosis. At this point, all wires, catheters and sheaths were removed. 3-0 Vicryl sutures were used to close the fistula access sites. Dermabond was applied. Pressure was held until hemostasis was achieved. The patient was then transferred to the outpatient recovery area. FINDINGS: Please see the procedure note for the findings. IMPRESSION: 1. Successful pharmacomechanical thrombectomy of the thrombosed left AV graft. Successful angioplasty of the brachial artery. 2. Successful angioplasty of the peripheral portion of the dialysis access and central portion of the dialysis access. 3. Final imaging demonstrates no areas of focal stenosis within the AV graft on completion venography. There is no evidence of flow-limiting thrombus within the graft on completion venography.
[2018-07-11 18:42] VITALS: BP 106/73
== END 2018-07-11 19:20 | disposition home or self-care (01) ==
LOC: CATHLABREC 09:38
PROVIDERS: ATTEND Radiology Diagnostic Radiology
DX: T82.868A Thrombosis due to vascular prosthetic devices, implants and grafts, initial encounter (principal); E11.22 Type 2 diabetes mellitus with diabetic chronic kidney disease; I13.2 Hypertensive heart and chronic kidney disease with heart failure and with stage 5 chronic kidney disease, or end stage renal disease; N18.6 End stage renal disease; I50.9 Heart failure, unspecified; I25.2 Old myocardial infarction; I87.1 Compression of vein; I25.10 Atherosclerotic heart disease of native coronary artery without angina pectoris; J44.9 Chronic obstructive pulmonary disease, unspecified; M10.9 Gout, unspecified; G47.30 Sleep apnea, unspecified; M19.90 Unspecified osteoarthritis, unspecified site; E66.01 Morbid (severe) obesity due to excess calories; Z68.43 Body mass index [BMI] 50.0-59.9, adult; Z79.899 Other long term (current) drug therapy; Z88.5 Allergy status to narcotic agent; Z88.1 Allergy status to other antibiotic agents; Z88.8 Allergy status to other drugs, medicaments and biological substances; Z90.49 Acquired absence of other specified parts of digestive tract; Z87.891 Personal history of nicotine dependence; Z98.891 History of uterine scar from previous surgery; Z86.73 Personal history of transient ischemic attack (TIA), and cerebral infarction without residual deficits; Z86.711 Personal history of pulmonary embolism; Z98.890 Other specified postprocedural states; Y83.2 Surgical operation with anastomosis, bypass or graft as the cause of abnormal reaction of the patient, or of later complication, without mention of misadventure at the time of the procedure; Z82.49 Family history of ischemic heart disease and other diseases of the circulatory system; Z83.3 Family history of diabetes mellitus; Z80.8 Family history of malignant neoplasm of other organs or systems
CPT/HCPCS: 36415; 36905; 36907; 84132; 99156; 99157; C1725; C1751; C1757; C1769; C1894; J1644; J2250; J2997; J3010; J3370; J7030; 76937; Q9967